=== PATIENT | male | born 1960 | race Caucasian/White ===

== ENCOUNTER → 2018-07-20 07:01 | Outpatient (CLI) | payer OTHER, SELFPAY ==
[2018-07-20 10:56] LABS: AST(SGOT) 21 U/L (15-37); Alanine Aminotransfer ALT/SGPT 39 U/L (16-61); Albumin, Serum 3.7 g/dL (3.2-5.0); Alkaline Phosphatase 58 U/L (45-117); Anion Gap 6 (5-15); BUN 18 mg/dL (7-18); BUN/Creat Ratio 19.5 RATIO (10-20); Calcium,Total 8.5 mg/dL (8.5-10.1); Chloride 106 mmol/L (98-107); Cholesterol 122 mg/dL (200); Creatinine, Serum 0.92 mg/dL (0.70-1.30); EST Glomerular Filtration Rate 90 mL/min (>60); Est Glom Filt Rate - Afr Amer 109 mL/min (>60); Globulin 3.6 g/dL (2.2-4.2); Glucose 81 mg/dL (74-106); High Density Lipoprotein 34 mg/dL; Protein, Total 7.3 g/dL (6.4-8.2); Sodium Level 143 mmol/L (136-145); Triglycerides 101 mg/dL; Very Low Density Lipoprotein 20 mg/dL (5-40)
== END ==
PROVIDERS: Family Provider Family Medicine; PCP Family Medicine; Referring Provider Family Medicine; Visit Provider Family Medicine
DX: E78.00 Pure hypercholesterolemia, unspecified (principal); N40.0 Benign prostatic hyperplasia without lower urinary tract symptoms
CPT/HCPCS: 36415; 80053; 80061; 84153; G0103

== ENCOUNTER → 2018-08-15 09:46 | Outpatient (CLI) | payer OTHER, SELFPAY ==
[2018-08-15 13:11] LABS: Thyroid Stim Hormone (TSH) 1.06 uIU/mL (0.358-3.74)
== END ==
PROVIDERS: Family Provider Family Medicine; PCP Family Medicine; Visit Provider Family Medicine
DX: R53.83 Other fatigue (principal)
CPT/HCPCS: 36415; 84443

== ENCOUNTER → 2021-04-22 15:57 | Outpatient (CLI) | payer OTHER, SELFPAY ==
--- NOTE | 2021-04-22 16:00 | RAD_ITS ---
STUDY: X-RAY CHEST REASON FOR EXAM: Male, 60 years old. Tightness in chest TECHNIQUE: PA and lateral COMPARISON: None. FINDINGS: Less than optimal inspiratory effort is seen however the lungs are clear.. There is no demonstrated pleural abnormality. Normal size heart. Normal mediastinum and radha. Normal visualized pulmonary arteries. Normal visualized aortic arch and descending thoracic aorta. Normal visualized thoracic spine. Normal visualized ribs, clavicles, and shoulders. There is no demonstrated abnormality of the visualized soft tissue structures of the upper abdomen. RAD/Chest PA and Lateral IMPRESSION: Diminished inspiratory effort. No acute disease Electronically Signed: Gregory Burdick MD at 16:13 EDT , Service support ,
== END ==
PROVIDERS: PCP Family Medicine; Referring Provider Family Medicine; Visit Provider Family Medicine
DX: M79.18 Myalgia, other site (principal)
CPT/HCPCS: 71046

== ENCOUNTER → 2021-08-28 07:59 | Outpatient (CLI) | payer OTHER, SELFPAY ==
[2021-08-28 10:01] LABS: Absolute Lymphocyte Count 1.72 X10^3/uL (0.83-4.51); Absolute Neutrophil Count 3.2 X10^3/uL (2.0-7.7); Basophil# 0.03 X10^3/uL; Basophil% 0.5 % (0-1); Eosinophil# 0.22 X10^3/uL; Hematocrit 46.1 % (40-54); Hemoglobin 15.9 g/dL (13.0-16.5); Lymphocyte # 1.72 X10^3/ul (0.83-4.51); Lymphocyte % 30.9 % (19-41); Mean Corp Hgb Conc 34.5 g/dL (32-36); Mean Corpuscular Hgb 31.4 pg (27.0-32.0); Mean Corpuscular Volume 91.1 fL (80-94); Mean Platelet Vol. 9.8 fl (6.2-12.0); Monocyte# 0.35 X10^3/uL; Monocyte% 6.3 % (0-10); NRBC Flagged by Analyzer 0 % (0-5); Neutrophil # 3.22 X10^3/uL (2.7-7.7); Neutrophil % 57.9 % (47-70); Platelet Count 233 K/mm3 (150-450); RBC Distribution Width CV 12.5 % (11.6-14.6); RBC Distribution Width SD 41.1 fl (35.1-43.9); Red Blood Count 5.06 M/mm3 (4.6-6.2); White Blood Count 5.6 K/mm3 (4.4-11.0)
[2021-08-28 10:24] LABS: ALB/GLOB Ratio 1.1 RATIO (0.9-2.4); AST(SGOT) 22 U/L (15-37); Alanine Aminotransfer ALT/SGPT 54 U/L (16-61); Albumin, Serum 3.7 g/dL (3.2-5.0); Alkaline Phosphatase 52 U/L (45-117); Anion Gap 2 (5-15); BUN 22 mg/dL (7-18); BUN/Creat Ratio 24.9 RATIO (10-20); Calcium,Total 9.2 mg/dL (8.5-10.1); Chloride 110 mmol/L (98-107); Cholesterol 153 mg/dL (200); Creatinine, Serum 0.88 mg/dL (0.70-1.30); EST Glomerular Filtration Rate 94 mL/min (>60); Est Glom Filt Rate - Afr Amer 113 mL/min (>60); Globulin 3.5 g/dL (2.2-4.2); Glucose 98 mg/dL (74-106); High Density Lipoprotein 37 mg/dL; Potassium 4.2 mmol/L (3.5-5.1); Protein, Total 7.2 g/dL (6.4-8.2); Sodium Level 143 mmol/L (136-145); Triglycerides 90 mg/dL; Very Low Density Lipoprotein 18 mg/dL (5-40)
== END ==
PROVIDERS: PCP Family Medicine; Referring Provider Family Medicine; Visit Provider Family Medicine
DX: Z00.00 Encounter for general adult medical examination without abnormal findings (principal); E78.00 Pure hypercholesterolemia, unspecified; N40.0 Benign prostatic hyperplasia without lower urinary tract symptoms; R97.20 Elevated prostate specific antigen [PSA]
CPT/HCPCS: 36415; 80053; 80061; 85025

== ENCOUNTER 2021-10-26 17:49 | Outpatient (CLI) | payer BC, SELFPAY | END 2021-10-26 23:59 | disposition home or self-care (01) | PROVIDERS: PCP Family Medicine; Visit Provider Family Medicine | DX: R31.9 Hematuria, unspecified (principal) | CPT/HCPCS: 87086 ==

== ENCOUNTER 2021-10-28 15:06 | Outpatient (CLI) | payer BC, SELFPAY ==
--- NOTE | 2021-10-28 15:10 | US_ITS ---
STUDY: RENAL ULTRASOUND - COMPLETE REASON FOR EXAM: Male, 61 years old. HEMATURIA TECHNIQUE: Ultrasound evaluation of the kidneys was performed with real-time and static yanez-scale imaging. COMPARISON: None. FINDINGS: RIGHT KIDNEY: Normal location of the right kidney, which is normal in size. The right kidney measures 11.1 cm. There is a normal cortex of the right kidney. The renal cortex measures 1.3 cm. There is no right renal mass or cyst. There are no right renal calculi. There is no right hydronephrosis. DISTAL RIGHT URETER: There is non-visualization of the distal right ureter. There is no demonstrated right ureterovesical junction calculus. There is a visualized right ureteral jet. LEFT KIDNEY: Normal location of the left kidney, which is normal in size. The left kidney measures 10.5 cm. There is a normal cortex of the left kidney. The renal cortex measures 1.4 cm. There is no left renal mass or cyst. There are no left renal calculi. There is no left hydronephrosis. DISTAL LEFT URETER: There is non-visualization of the distal left ureter. There is no demonstrated left ureterovesical junction calculus. There is a visualized left ureteral jet. AORTA: There is no elongation or tortuosity of the abdominal aorta. I.V.C.: The IVC is obscured. BLADDER: The distended urinary bladder has a volume of 185 ml. There is a normal wall thickness of the distended urinary bladder. There is no demonstrated mass within the urinary bladder. There are no demonstrated bladder calculi. Prominent prostate gland. US/Kidney and Bladder IMPRESSION: No acute findings on this ultrasound of the kidneys and urinary bladder. The prostate gland is enlarged. Electronically Signed: Toño Scott MD at 16:13 EST ,
== END 2021-10-28 23:59 | disposition home or self-care (01) ==
PROVIDERS: PCP Family Medicine; Referring Provider Family Medicine; Visit Provider Family Medicine
DX: R31.9 Hematuria, unspecified (principal)
CPT/HCPCS: 76770

== ENCOUNTER 2021-11-12 11:00 | Outpatient (CLI) | payer BC, SELFPAY | END 2021-11-12 23:59 | disposition home or self-care (01) | LOC: SL 11:40 | PROVIDERS: PCP Family Medicine; Visit Provider Nurse Practitioner Acute Care | DX: G47.10 Hypersomnia, unspecified (principal) | CPT/HCPCS: 95806 ==

== ENCOUNTER 2022-07-28 06:23 | Inpatient (IN) | payer BC, SELFPAY ==
[2022-07-28] VITALS (17 sets, daily range): BP systolic 103–124; BP diastolic 61–86; PULSE 59–82; RESP 12–18; TEMP 36.4–37.1; O2SAT 95–99; BMI 28.0; BMI 27.2
--- NOTE | 2022-07-28 06:24 | CT_ITS ---
STUDY: CT HEAD STROKE PROTOCOL W/O CONTRAST INJECTION REASON FOR EXAM: Male, 61 years old. Neuro deficit, acute, stroke suspected RADIATION DOSAGE (If Supplied By Facility): CTDIvol = ( 45 ) mGy, DLP = ( 832.7 ) mGycm TECHNIQUE: Transaxial CT imaging of the brain was performed without administration of intravenous contrast material. Multiplanar reformations are submitted for interpretation. Individualized dose optimization techniques were used for this CT. COMPARISON: No relevant priors. FINDINGS: Normal soft tissue structures. Normal calvarium. Normal size ventricles and extra-axial spaces for the patient''s age. Normal white matter tracts of the cerebral hemispheres. Normal basal ganglia and thalami. Normal brainstem. Normal cerebellum. There is no intracranial hemorrhage. There is a focal hyperdensity in expected location of LEFT M2 and M3 branch of the left frontal lobe consistent with acute infarct. This is identified on axial image #15 and 16 and on coronal image #34. There is also suggestion for some patchy decreased attenuation within the left frontal lobe cortex. Normal visualized paranasal sinuses. CT/STROKE Brain/Head without Cont IMPRESSION: 1. The findings suggest thrombosis of the LEFT M2 and M3 branches within the left sylvian fissure with findings suggestive of a left middle cerebral artery territory infarct. 2. No CT evidence of acute intracranial hemorrhage. N.B. : The above Results were Read Back by Edie Barnard MD to Christian Dobbs MD, and understanding confirmed on 07/28/2022 06:36:40 (ET). Electronically Signed: Edie Barnard MD at 6:40 EST ,
--- NOTE | 2022-07-28 06:25 | CT_ITS ---
STUDY: CTA HEAD AND NECK WITH CONTRAST REASON FOR EXAM: Male, 61 years old patient with acute neurologic deficit. RADIATION DOSAGE (If Supplied By Facility): CTDIvol = ( 24.17 ) mGy, DLP = ( 787.31 ) mGycm TECHNIQUE: CT angiography was performed with a multi-detector CT scanner. Data acquisition was obtained from the skull base through the vertex following intravenous administration of 100 mL of Isovue-370. MIP images were reconstructed from the axial data set. Post-processing of the angiographic images was performed, with multiplanar reformation and 3D reconstruction. Individualized dose optimization techniques were used for this CT. COMPARISON: No relevant priors. FINDINGS: Normal bilateral petrous carotid arteries. Normal right cavernous carotid artery with a normal supraclinoid bifurcation. There is elongation and tortuosity of the left cavernous carotid artery without a demonstrated hemodynamically significant stenosis. Normal right A1 segments of the anterior cerebral artery. Normal left A1 segments of the anterior cerebral artery. Normal intact anterior communicating artery (ACOM). Normal bilateral A2 segments of the anterior cerebral arteries. Normal right M1 and M2 segments of the middle cerebral arteries, with a normal M1 bifurcation. Normal left M1 segments of the middle cerebral arteries, with a normal M1 bifurcation. There is thrombosis of one of the left-sided M2 branches best seen on series #2 images #[id number]. Normal right posterior communicating artery (PCOM). Normal left posterior communicating artery (PCOM). Normal bilateral vertebral arteries. Normal basilar artery with a normal basilar bifurcation. The visualized bilateral superior cerebellar (SCA) arteries are normal. Normal bilateral P1, P2 and visualized P3 segments of the posterior cerebral arteries. There is no demonstrated aneurysm of the [place]. There is no demonstrated abnormality of the visualized brain. AORTIC ARCH: Normal visualized aortic arch. Normal origins of the brachiocephalic, left common carotid, and left subclavian arteries. RIGHT CAROTID ARTERIES: Normal right common carotid artery (CCA). Normal right common carotid bulb. Normal origin of the right internal carotid (ICA) artery without a hemodynamically significant stenosis. Normal visualized cervical portion of the right internal carotid artery. Normal origin of the right external carotid artery (ECA). LEFT CAROTID ARTERIES: Normal left common carotid artery (CCA). Normal left common carotid bulb. Normal origin of the left internal carotid (ICA) artery without a hemodynamically significant stenosis. Normal visualized cervical portion of the left internal carotid artery. Normal origin of the left external carotid artery (ECA). VERTEBRAL ARTERIES: Normal bilateral vertebral arteries. NECK ANATOMY: There is scattered mucous retention cysts and mucosal thickening within the maxillary and ethmoid sinuses. There is patchy groundglass attenuation in the upper lobes. The thyroid has a normal appearance. Visualized parotid and subglandular glands have a normal CT appearance. Nasopharynx, oropharynx, hypopharynx and larynx have a grossly normal appearance. The multilevel degenerative changes of the cervical spine with disc space narrowing at C5-6 and C6-7. CT/STROKE CTA Head AND Neck W/Con IMPRESSION: 1. Findings suggest thrombosis of one of the left sided M2 branches. 2. General patency of the arteries of [place], otherwise. 3. No CTA evidence of hemodynamically significant stenosis, thrombosis or dissection of the arteries in neck. N.B. : The above Results were Read Back by Edie Barnard MD to Christian Dobbs MD, and understanding confirmed on 07/28/2022 07:12:36 (ET). Electronically Signed: Edie Barnard MD at 7:12 EST Reading Location ID and State: [facility] / [place] , Service support ,
[2022-07-28 06:33] LABS: Basophil# 0.03 X10^3/uL; Basophil% 0.5 % (0-1); Eosinophil# 0.16 X10^3/uL; Eosinophils% 2.6 % (0-5); Hematocrit 43.6 % (40-54); Hemoglobin 15.3 g/dL (13.0-16.5); Lymphocyte % 25.9 % (19-41); Mean Corp Hgb Conc 35.1 g/dL (32-36); Mean Corpuscular Hgb 31.4 pg (27.0-32.0); Mean Corpuscular Volume 89.3 fL (80-94); Mean Platelet Vol. 9.4 fl (6.2-12.0); Monocyte# 0.37 X10^3/uL; NRBC Flagged by Analyzer 0 % (0-5); Neutrophil % 64.7 % (47-70); Platelet Count 191 K/mm3 (150-450); RBC Distribution Width CV 12.1 % (11.6-14.6); RBC Distribution Width SD 39.3 fl (35.1-43.9); Red Blood Count 4.88 M/mm3 (4.6-6.2); White Blood Count 6.2 K/mm3 (4.4-11.0)
[2022-07-28 06:41] LABS: International Normalized Ratio 1.1; Prothrombin Time (Protime)PT. 13.8 SECONDS (11.7-14.9)
[2022-07-28 06:42] LABS: Partial Thromboplast Time 25.6 Seconds (24.1-36.2)
--- NOTE | 2022-07-28 06:47 | NURSING ---
NO OLD EKGS
[2022-07-28 06:54] LABS: Anion Gap 5 (5-15); BUN 17 mg/dL (7-18); BUN/Creat Ratio 17.5 RATIO (10-20); Calcium,Total 9.1 mg/dL (8.5-10.1); Chloride 107 mmol/L (98-107); Creatinine, Serum 0.97 mg/dL (0.70-1.30); EST Glomerular Filtration Rate 84 mL/min (>60); Est Glom Filt Rate - Afr Amer 102 mL/min (>60); Estimated Creatinine Clearance 79.33 ml/min; Glucose 115 mg/dL (74-106); Potassium 3.8 mmol/L (3.5-5.1); Sodium Level 141 mmol/L (136-145); Troponin-I HS < 3 pg/mL (3.0-78.0)
--- NOTE | 2022-07-28 07:15 | RAD_ITS ---
STUDY: X-RAY CHEST REASON FOR EXAM: Male, 61 years old patient with neurologic deficit, acute, stroke suspected. TECHNIQUE: Single AP portable view of the chest. COMPARISON: 04/22/2021. FINDINGS: Cardiac monitoring leads are present. The lungs are underexpanded. There is mild elevation of the right hemidiaphragm. There is no demonstrated pleural abnormality. There is mild cardiac enlargement. Normal mediastinum and radha. There is prominence of the pulmonary hilar arteries with peripheral pulmonary vascular congestion. Normal visualized aortic arch and descending thoracic aorta. Normal visualized thoracic spine. Normal visualized ribs, clavicles, and shoulders. There is no demonstrated abnormality of the visualized soft tissue structures of the upper abdomen. RAD/Chest 1 View IMPRESSION: Mild cardiomegaly and pulmonary vascular congestion. Electronically Signed: Edie Barnard MD at 7:53 EST ,
--- NOTE | 2022-07-28 07:52 | NURSING ---
DR HOLDER FOR DR ANDREWS
--- NOTE | 2022-07-28 07:59 | EX.ED.DYSGE1 ---
HPI History of Present Illness Chief Complaint: Stroke Alert Narrative Narrative: Patient is a 61-year-old male with past medical history of hyperlipidemia. He was last seen normal at 10 PM last night. Reportedly he awoke this morning with difficulty speaking and standing and weakness and EMS was called. EMS states when they arrived he was awake but could not speak or follow commands and could not stand. Secondary to this activated a stroke alert. They report his blood sugar was normal. Patient cannot offer any further history based on his clinical condition. [facility] Medical History Hyperlipidemia Home Medications atorvastatin 40 mg tablet 40 mg PO DAILY 10/13/21 [History Last Taken Unknown] fluticasone propionate 50 mcg/actuation nasal spray,suspension 1 spray intranasal DAILY 10/13/21 [History Last Taken Unknown] oxymetazoline 0.05 % nasal spray (Afrin (oxymetazoline)) 1 spray intranasal ONCE 10/13/21 [History Last Taken Unknown] Allergy/AdvReac Type Severity Reaction Status Date / Time No Known Allergies Allergy Verified 11/26/21 09:09 Family History Father Cancer bladder cancer Surgical History History of prostate surgery Hx of basal cell carcinoma excision Previous back surgery Social History household members: spouse housing: house pets and animals: Yes (guinea pigs) Smoking Status: Never smoker alcohol intake: current alcohol intake frequency: holidays/special occasions only Alcohol type: wine substance use type: does not use ROS ROS ED Review of Systems ROS Unobtainable: due to mental condition EXAM Physical Exam Const Vital Signs: 07/28/22 06:25 07/28/22 06:37 07/28/22 06:37 Temperature 97.5 F L Temperature Source Oral Pulse Rate 60 66 Respiratory Rate 18 15 Blood Pressure 124/80 H 113/68 Blood Pressure Mean 94 83 Pulse Ox 97 95 Oxygen Delivery Method Room Air Room Air Room Air 07/28/22 06:37 07/28/22 06:58 07/28/22 07:33 Temperature 98.2 F Temperature Source Temporal Pulse Rate 66 69 68 Respiratory Rate 14 14 15 Blood Pressure 113/68 112/71 108/86 H Blood Pressure Mean 83 84 93 Pulse Ox 95 99 97 Oxygen Delivery Method Room Air Room Air Room Air 07/28/22 07:33 Temperature Temperature Source Pulse Rate 70 Respiratory Rate 15 Blood Pressure 108/86 H Blood Pressure Mean 93 Pulse Ox 97 Oxygen Delivery Method Room Air Positive well nourished and well developed General Appearance ED: well developed HEENT Reports moist mucous membranes Eyes PERRL and EOMs intact bilaterally Neck supple Resp normal respiratory effort and clear to auscultation bilaterally Cardio regular rate and regular rhythm Rate: other Other Details: Radial pulses are +2-4 bilaterally are equal and symmetric GI non-distended GI Narrative: No pulsatile mass Auscultation: normoactive bowel sounds Palpation: soft Extremity Extremity Narrative: No bony deformity or joint effusion noted no asymmetric edema present. Neuro Neuro Narrative: Patient is awake but cannot answer level of consciousness questions. He also has difficulty performing consciousness commands. He has right sided facial droop as well as right arm drift and right leg drift. No truncal ataxia noted. Patient has aphasia and mild dysarthria. No obvious clark of vision loss. Patient has an NIH stroke scale score of 12 based on the above observations Sensorium / Orientation: alert Psych Psych Narrative: Patient has a flat affect Skin no rashes or lesions noted MDM MDM MDM Narrative Medical decision making narrative: Patient presented to the ER with obvious focal deficits consistent with acute stroke. However his last known well was 10 PM on the night of July 27 and therefore he is outside the tPA window. Still based on the severity of the symptoms a stroke alert was activated as he could qualify for thrombectomy if there is a large vessel occlusion present on CTA. CT scan did show a small thrombus in the M2 branch on the left but this is a distal lesion and the remainder of the vessels are largely patent. Therefore after discussing the case with neurology they do not feel he would warrant thrombectomy and recommend he receive a loading dose of Plavix and continue aspirin daily but do not feel there is need for transfer. Therefore these meds were ordered and patient will be admitted to the hospital for further observation and treatment Lab Data Attestation: I reviewed the patient's lab results. Labs: Laboratory Results - last 24 hr 07/28/22 07/28/22 07/28/22 06:16 06:16 06:16 WBC 6.2 RBC 4.88 Hgb 15.3 Hct 43.6 MCV 89.3 MCH 31.4 MCHC 35.1 RDW Std Deviation 39.3 RDW Coeff of Whit 12.1 Plt Count 191 MPV 9.4 Immature Gran % (Auto) 0.300 Neut % (Auto) 64.7 Lymph % (Auto) 25.9 [place] % (Auto) 6.0 Eos % (Auto) 2.6 Baso % (Auto) 0.5 Absolute Neuts (auto) 4.0 Absolute Lymphs (auto) 1.60 Nucleated RBC % 0 PT 13.8 INR 1.1 APTT 25.6 Sodium 141 Potassium 3.8 Chloride 107 Carbon Dioxide 29.0 Anion Gap 5 BUN 17 Creatinine 0.97 Estim Creat Clear Calc 79.33 Est GFR (MDRD) Af Amer 102 Est GFR (MDRD) Non-Af 84 BUN/Creatinine Ratio 17.5 Glucose 115 H Calcium 9.1 Troponin I High Sens < 3 L Radiography Diagnostic Testing: Clinical Impression(s) from Imaging Studies Brain CT 07/28/22 06:24 IMPRESSION: 1. The findings suggest thrombosis of the LEFT M2 and M3 branches within the left sylvian fissure with findings suggestive of a left middle cerebral artery territory infarct. 2. No CT evidence of acute intracranial hemorrhage. N.B. : The above Results were Read Back by Edie Barnard MD to Christian Dobbs MD, and understanding confirmed on 07/28/2022 06:36:40 (ET). Electronically Signed: Edie Barnard MD at 6:40 EST Reading Location ID and State: [facility] / [place] , Service support , ADDENDUM: 07/28/22 0647 IMPRESSION: 1. The findings suggest thrombosis of the LEFT M2 and M3 branches within the left sylvian fissure with findings suggestive of a left middle cerebral artery territory infarct. 2. No CT evidence of acute intracranial hemorrhage. N.B. : The above Results were Read Back by Edie Barnard MD to hCristian Dobbs MD, and understanding confirmed on 07/28/2022 06:36:40 (ET). Electronically Signed: Edie Barnard MD at 6:40 EST , Head/Neck CTA 07/28/22 06:25 IMPRESSION: 1. Findings suggest thrombosis of one of the left sided M2 branches. 2. General patency of the arteries of [place], otherwise. 3. No CTA evidence of hemodynamically significant stenosis, thrombosis or dissection of the arteries in neck. N.B. : The above Results were Read Back by Edie Barnard MD to Christian Dobbs MD, and understanding confirmed on 07/28/2022 07:12:36 (ET). Electronically Signed: Edie Barnard MD at 7:12 EST , Chest X-Ray 07/28/22 07:15 IMPRESSION: Mild cardiomegaly and pulmonary vascular congestion. Electronically Signed: Edie Barnard MD at 7:53 EST , Chest x-ray as interpreted by the emergency medicine physician reveals no obvious infiltrate pneumothorax or pleural effusion Critical Care Time Critical Care Time: Yes Critical care time (excluding procedures): Discussing w/Patient &/or Family/Cut Off Saw Grader, Discussing w/Consultants, Performing Direct Patient Care at Bedside and - (Critical care time of 31 minutes) Discharge Plan Triage Chief Complaint: Stroke Alert ED Provider: Christian Dobbs Dx/Rx/DC Orders Clinical Impression: Acute cerebrovascular accident (CVA), Hyperlipidemia Prescriptions: No Action atorvastatin 40 mg tablet 40 mg PO DAILY fluticasone propionate 50 mcg/actuation spray,suspension 1 spray intranasal DAILY Rx Instructions: administer into each nostril oxymetazoline [Afrin (oxymetazoline)] 0.05 % spray,non-aerosol 1 spray intranasal ONCE Primary Care Provider: Babak Cosme Referrals: Babak Cosme MD [Primary Care Provider] - Disposition Disposition: Acute Care [facility]
--- NOTE | 2022-07-28 08:07 | NURSING ---
PCU HOLDER CVA
[2022-07-28] MEDS: Clopidogrel Bisulfate 300 MG Tablet 600 MG PO (08:24)
[2022-07-28] MEDS: Aspirin 325 MG Tablet PO (08:24)
--- NOTE | 2022-07-28 08:24 | ECHOD_ITS ---
Reason For Study: TIA/STROKE Procedure This was a 2D Doppler, Color Flow transthoracic echocardiogram. The exam was of adequate technical quality. Exam performed portable in patient room. Left Ventricle Normal LV size. Left ventricular systolic function is normal. The estimated ejection fraction is 60 %. No evidence for diastolic dysfunction. No regional wall motion abnormalities noted. Right Ventricle Normal RV size. Normal systolic function. Atria Normal left atrium. Normal right atrium. No doppler evidence for ASD. Bubble contrast study negative for right to left interatrial shunt. Mitral Valve There is no mitral annular calcification. Normal mitral valve. Trivial mitral valve insufficiency. Tricuspid Valve Normal tricuspid valve. Trivial tricuspid valve insufficiency. Unable to estimate RV systolic pressure due to insufficient tricuspid regurgitant envelope. Aortic Valve Trisinus/trileaflet aortic valve. Normal aortic valve. Pulmonic Valve The pulmonic valve is not well visualized. Trivial pulmonic valve insufficiency. Great Vessels Normal sized aortic root. Pericardium/Pleural Trivial pericardial effusion. There are no echocardiographic indications of cardiac tamponade. Medication Performed a rapid injection of agitated mix of 9 cc saline and 1cc air to assess for atrial septal defect. MMode/2D Measurements & Calculations LVIDd: 4.9 cm IVSd: 0.71 cm Ao root diam: 3.2 cm LVIDs: 3.4 cm LVPWd: 0.90 cm RVDd: 3.2 cm FS: 31.5 % LAV(MOD-bp): 35.9 ml LVAd ap4: 31.6 cm2 SV(MOD-sp4): 66.3 ml LAV(MOD-bp) Indexed: 18.2 ml/m2 LVLd ap4: 8.1 cm LAV(MOD-sp2): 35.5 ml EDV(MOD-sp4): 104.6 ml LAV(MOD-sp4): 34.5 ml EDV(sp4-el): 104.4 ml LVAs ap4: 17.1 cm2 LVLs ap4: 6.5 cm ESV(MOD-sp4): 38.3 ml ESV(sp4-el): 38.0 ml EF(MOD-sp4): 63.4 % EF(sp4-el): 63.6 % SV(sp4-el): 66.4 ml LA A4 area: 14.4 cm2 LA dimension(2D): 3.8 cm RA A4 area: 14.2 cm2 Time Measurements MV dec time: 0.21 sec Doppler Measurements & Calculations MV E max rush: 66.3 cm/sec Lat Peak E' Rush: 10.9 cm/sec Med Peak E' Rush: 9.5 cm/sec MV A max rush: 61.2 cm/sec E/E' lat: 6.1 E/E' med: 7.0 MV E/A: 1.1 Ao V2 max: 103.2 cm/sec LV V1 max: 90.2 cm/sec PA V2 max: 95.8 cm/sec Ao max P.3 mmHg LV V1 max P.3 mmHg TR max rush: 234.6 cm/sec TR max P.0 mmHg ECHO/Echo Complete Interpretation Summary Left ventricular systolic function is normal. The estimated ejection fraction is 60 %. Trivial mitral valve insufficiency. Trivial tricuspid valve insufficiency. Trivial pulmonic valve insufficiency. Trivial pericardial effusion. There are no echocardiographic indications of cardiac tamponade. Unable to estimate RV systolic pressure due to insufficient tricuspid regurgita nt envelope. No evidence for diastolic dysfunction. Bubble contrast study negative for right to left interatrial shunt. Ordering Physician: Tamiko Kohler Referring Physician: DENNISE CHAVEZ Performed By: Marilia Fan RDCS
--- NOTE | 2022-07-28 08:27 | HP.PCM.HOS_ITS ---
HPI - General General Date of Admission: 07/28/22 Date of Service: 07/28/22 Chief Complaint: CVA HPI Narrative TOMY ROTHMAN, is a 61 M with history of hyperlipidemia who presented to [facility] 07/28/2022 accompanied by his and son due to new onset limping and difficulty with communication. Stroke alert in the ED was initiated and he had CT/CTA which showed thrombosis in one of the left-sided M2 and M3 branches within the left sylvian fissure and findings suggestive of left MCA territory infarct with no evidence of hemorrhage. ED physician had contacted neurology and given that his last known normal was 10 PM last night he was not a candidate for tPA and after review they did not feel he was a candidate for any other intervention. Recommended Plavix 600x1 and 325 aspirin followed by 81 mg daily. Hospitalist service contacted for admission. Went to evaluate patient and and son still at bedside. Confirmed last known normal was at 10 PM last night. Initially his son said that this morning he may have had a normal when he woke up to work out but then reported he had not seen him walking and also that his responses were mumbles at that time as well. Last known normal still then reported to be 10 PM last night. Reportedly he was in routine health prior to this and had not been voicing any complaints other than being tired which is typical for him per his . He has difficulty communic ating and following commands and was therefore unable to answer any of my questions on exam. [facility] Medical History Hyperlipidemia Home Medications atorvastatin 40 mg tablet 40 mg PO DAILY 10/13/21 [History Last Taken Unknown] fluticasone propionate 50 mcg/actuation nasal spray,suspension 1 spray intranasal DAILY 10/13/21 [History Last Taken Unknown] oxymetazoline 0.05 % nasal spray (Afrin (oxymetazoline)) 1 spray intranasal ONCE 10/13/21 [History Last Taken Unknown] Allergy/AdvReac Type Severity Reaction Status Date / Time No Known Allergies Allergy Verified 11/26/21 09:09 Family History Father Cancer bladder cancer Surgical History History of prostate surgery Hx of basal cell carcinoma excision Previous back surgery Social History (Reviewed 11/26/21 @ 09:17 by Leyda Martínez [employer] S[employer]LE, TAPPER [employer] 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) household members: spouse housing: house pets and animals: Yes (guinea pigs) Smoking Status: Never smoker alcohol intake: current alcohol intake frequency: holidays/special occasions only Alcohol type: wine substance use type: does not use ROS ROS Narrative Unable to obtain, it is inconsistent yes and knows to the same questions and cannot follow commands Vital Signs Vital Signs Vital Signs: 07/28/22 06:25 07/28/22 06:37 07/28/22 06:37 Temperature 97.5 F L Temperature Source Oral Pulse Rate 60 66 Respiratory Rate 18 15 Blood Pressure 124/80 H 113/68 Blood Pressure Mean 94 83 Pulse Ox 97 95 Oxygen Delivery Method Room Air Room Air Room Air 07/28/22 06:37 07/28/22 06:58 07/28/22 07:33 Temperature 98.2 F Temperature Source Temporal Pulse Rate 66 69 68 Respiratory Rate 14 14 15 Blood Pressure 113/68 112/71 108/86 H Blood Pressure Mean 83 84 93 Pulse Ox 95 99 97 Oxygen Delivery Method Room Air Room Air Room Air 07/28/22 07:33 Temperature Temperature Source Pulse Rate 70 Respiratory Rate 15 Blood Pressure 108/86 H Blood Pressure Mean 93 Pulse Ox 97 Oxygen Delivery Method Room Air Weight Weight: 83.7 kg Body Mass Index (BMI) 28.0 Physical Exam Const Constitutional Narrative: Alert, unable to answer orientation questions, does not appear acutely distressed HEENT HEENT Narrative: Normocephalic and atraumatic Eyes Eyes Narrative: Pupils equal, had difficulty following commands for extraocular movements though no overt deficits appreciated Neck supple Resp normal respiratory effort and clear to auscultation bilaterally Cardio regular rate and regular rhythm GI soft to palpation and non-distended Extremity Extremity Narrative: Moving his extremities but was unable to follow commands or participate in neuro or strength exam Neuro Neuro Narrative: Alert, unable to answer orientation questions, unable to participate in neuro exam, unable to name things, only said yes or no and was inconsistent with answers to the same questions and did not appear to be able to accurately convey responses. Moving extremities but unable to participate in strength exam. Did not follow commands. Reflexes brisk and symmetric throughout, did not appreciate any clonus in lower extremities. Did not note any asymmetrical facial movements but would not follow commands to test cranial nerves Psych Psych Narrative: Attempts to be cooperative Results Lab / Micro Data Result Diagrams: 07/28/22 06:16 07/28/22 06:16 Labs: Laboratory Results - last 24 hr 07/28/22 06:16: WBC 6.2, RBC 4.88, Hgb 15.3, Hct 43.6, MCV 89.3, MCH 31.4, MCHC 35.1, RDW Std Deviation 39.3, RDW Coeff of Whit 12.1, Plt Count 191, MPV 9.4, Immature Gran % (Auto) 0.300, Neut % (Auto) 64.7, Lymph % (Auto) 25.9, [place] % (Auto) 6.0, Eos % (Auto) 2.6, Baso % (Auto) 0.5, Absolute Neuts (auto) 4.0, Absolute Lymphs (auto) 1.60, Nucleated RBC % 0 07/28/22 06:16: PT 13.8, INR 1.1, APTT 25.6 07/28/22 06:16: Sodium 141, Potassium 3.8, Chloride 107, Carbon Dioxide 29.0, Anion Gap 5, BUN 17, Creatinine 0.97, Estim Creat Clear Calc 79.33, Est GFR (MDRD) Af Amer 102, Est GFR (MDRD) Non-Af 84, BUN/Creatinine Ratio 17.5, Glucose 115 H, Calcium 9.1, Troponin I High Sens < 3 L Rad[address] Impression Brain CT 07/28/22 06:24 IMPRESSION: 1. The findings suggest thrombosis of the LEFT M2 and M3 branches within the left sylvian fissure with findings suggestive of a left middle cerebral artery territory infarct. 2. No CT evidence of acute intracranial hemorrhage. N.B. : The above Results were Read Back by Edie Barnard MD to Christian Dobbs MD, and understanding confirmed on 07/28/2022 06:36:40 (ET). Electronically Signed: Edie Barnard MD at 6:40 EST Reading Location ID and State: [facility] / [place] , Service support , ADDENDUM: 07/28/2247 IMPRESSION: 1. The findings suggest thrombosis of the LEFT M2 and M3 branches within the left sylvian fissure with findings suggestive of a left middle cerebral artery territory infarct. 2. No CT evidence of acute intracranial hemorrhage. N.B. : The above Results were Read Back by Edie Barnard MD to Christian Dobbs MD, and understanding confirmed on 07/28/2022 06:36:40 (ET). Electronically Signed: Edie Barnard MD at 6:40 EST , Head/Neck CTA 07/28/22 06:25 IMPRESSION: 1. Findings suggest thrombosis of one of the left sided M2 branches. 2. General patency of the arteries of [place], otherwise. 3. No CTA evidence of hemodynamically significant stenosis, thrombosis or dissection of the arteries in neck. N.B. : The above Results were Read Back by Edie Barnard MD to Christian Dobbs MD, and understanding confirmed on 07/28/2022 07:12:36 (ET). Electronically Signed: Edie Barnard MD at 7:12 EST , Chest X-Ray 07/28/22 07:15 IMPRESSION: Mild cardiomegaly and pulmonary vascular congestion. Electronically Signed: Edie Barnard MD at 7:53 EST , Assessment & Plan Assessment/Plan (1) Acute cerebrovascular accident (CVA): PLAN: Plan #Acute ischemic CVA CT/CTA in ED suggestive of thrombosis in one of the left-sided M2 and M3 branches within the left sylvian fissure with findings suggestive of left MCA territory infarct with no evidence of hemorrhage Spoke with ED physician who had discussed with neuro, they recommended 600 mg of Plavix and 325 of aspirin followed by aspirin 81 mg daily and no further Plavix at this time Troponin within normal limits and EKG was sinus rhythm Will order echo, MRI, lipid panel, A1c PT/OT/speech Admit to telemetry Neurochecks Permissive hypertension tPA not given due to last known normal at 10 PM last night, ED physician spoke with neuro who did not think he was a candidate for any additional intervention and recommended medical admission and intervention #Hyperlipidemia Checking lipid panel Continuing atorvastatin #DVT ppx: SCDs Tamiko Kohler MD Charges/Coding Visit Charges Inpatient E&M: 08454 Init Hosp L2
--- NOTE | 2022-07-28 08:59 | MRI_ITS ---
We are attempting to reach an attending provider to discuss findings. An addendum with communication details will be sent when the communication is complete. INDICATION: CVA, WEAKNESS, SPEECH CHANGES EXAMINATION: MRI - MR Brain WO/W Contrast TECHNIQUE: Multiplanar and multisequence MR images of the brain were obtained without and with gadolinium. IV Contrast Dosage and Agent: 15 cc Clariscan COMPARISON: CT and CTA brain same date FINDINGS: BRAIN PARENCHYMA: No MRI evidence of hemorrhage. Acute ischemia in the left MCA distribution. No intracranial mass or mass effect. No abnormal postcontrast enhancement. Normal sella turcica, pituitary gland, infundibular stalk, optic chiasm and hypothalamus. Posterior fossa structures are unremarkable. INTERNAL AUDITORY CANALS: The internal auditory canals are well visualized and patent. No mass identified. CSF SPACES: Appropriate for age. No hydrocephalus. Basal cisterns are patent. VASCULAR SYSTEM: Normal flow voids in the major intracranial circulation. CALVARIUM, SKULL BASE, PARANASAL SINUSES AND MASTOID AIR CELLS: Ethmoid sinus mucoperiosteal thickening. ORBITS: Both globes, extraocular muscles, optic nerves and retrobulbar fat appear unremarkable. MRI/Brain W/WO Contrast IMPRESSION: Acute ischemia in the left MCA distribution. Electronically Signed: Norman Reese MD at 16:38 EST ,
[2022-07-28] MEDS: 0.9% Normal Saline 1,000 ML 75 ML IV (12:42)
[2022-07-28 15:40] LABS: Bedside Glucose 93 mg/dL (74-106)
--- NOTE | 2022-07-28 17:01 | TELEMED_ITS ---
[facility] Tele[facility] has confirmed receipt of a request for visit. This document confirms receipt of the order initiating the consult. To find the results of the consultation, please view the patient's reports for the scanned Telemed Consult.
[2022-07-29] VITALS (12 sets, daily range): BP systolic 96–117; BP diastolic 60–72; PULSE 71–89; RESP 16–17; TEMP 36.4–36.7; O2SAT 93–96; BMI 27.2
[2022-07-29] MEDS: 0.9% Normal Saline 1,000 ML 75 ML IV ×2 (01:16→14:21)
[2022-07-29 05:24] LABS: Absolute Lymphocyte Count 1.82 X10^3/uL (0.83-4.51); Absolute Neutrophil Count 5.1 X10^3/uL (2.0-7.7); Basophil# 0.03 X10^3/uL; Basophil% 0.4 % (0-1); Eosinophil# 0.11 X10^3/uL; Eosinophils% 1.4 % (0-5); Hematocrit 41.4 % (40-54); Hemoglobin 14.7 g/dL (13.0-16.5); Lymphocyte # 1.82 X10^3/ul (0.83-4.51); Lymphocyte % 23.8 % (19-41); Mean Corp Hgb Conc 35.5 g/dL (32-36); Mean Corpuscular Hgb 31.8 pg (27.0-32.0); Mean Corpuscular Volume 89.6 fL (80-94); Mean Platelet Vol. 9.3 fl (6.2-12.0); Monocyte# 0.57 X10^3/uL; Monocyte% 7.4 % (0-10); NRBC Flagged by Analyzer 0 % (0-5); Neutrophil # 5.12 X10^3/uL (2.7-7.7); Neutrophil % 66.9 % (47-70); Platelet Count 174 K/mm3 (150-450); RBC Distribution Width CV 12.3 % (11.6-14.6); RBC Distribution Width SD 39.8 fl (35.1-43.9); Red Blood Count 4.62 M/mm3 (4.6-6.2); White Blood Count 7.7 K/mm3 (4.4-11.0)
[2022-07-29 06:01] LABS: ALB/GLOB Ratio 1.1 RATIO (0.9-2.4); AST(SGOT) 21 U/L (15-37); Alanine Aminotransfer ALT/SGPT 35 U/L (16-61); Albumin, Serum 3.2 g/dL (3.2-5.0); Alkaline Phosphatase 51 U/L (45-117); Anion Gap 7 (5-15); BUN 18 mg/dL (7-18); Calcium,Total 8.2 mg/dL (8.5-10.1); Chloride 108 mmol/L (98-107); Cholesterol 132 mg/dL (200); Creatinine, Serum 0.86 mg/dL (0.70-1.30); EST Glomerular Filtration Rate 97 mL/min (>60); Est Glom Filt Rate - Afr Amer 117 mL/min (>60); Estimated Creatinine Clearance 89.48 ml/min; Glucose 79 mg/dL (74-106); High Density Lipoprotein 34 mg/dL; Potassium 3.7 mmol/L (3.5-5.1); Protein, Total 6.2 g/dL (6.4-8.2); Sodium Level 141 mmol/L (136-145); Thyroid Stim Hormone (TSH) 0.32 uIU/mL (0.358-3.74); Triglycerides 84 mg/dL; Very Low Density Lipoprotein 17 mg/dL (5-40)
[2022-07-29 08:28] LABS: Hemoglobin A1c 5.3 % (3.8-5.6)
--- NOTE | 2022-07-29 08:56 | PN.HOSP_ITS ---
Subjective Subjective More conversive today and better able to answer questions though still with difficulty answering orientation questions. Was moving limbs with prompts however Objective Data Objective Data Vital Signs: Vital Signs Temp Pulse Resp BP Pulse Ox O2 Del Method 97.9 F 76 16 117/68 96 Room Air 07/29/22 08:49 07/29/22 08:49 07/29/22 08:49 07/29/22 08:49 07/29/22 08:49 07/29/22 08:49 Oxygen Delivery Method Room Air Weight: 81.2 kg Body Mass Index (BMI) 27.2 Intake & Output: Intake and Output for Last 24 Hours 07/27/22 07/28/22 07/29/22 23:59 23:59 23:59 Intake Total 942.5 / 942.5 Output Total 550 / 550 250 / 250 Balance -550 / -550 692.5 / 692.5 Lab / Micro Data Result Diagrams: 07/29/22 04:52 07/29/22 04:52 Labs: Laboratory Results - last 24 hr 07/28/22 06:37: POC Glucose 93 07/29/22 04:52: Sodium 141, Potassium 3.7, Chloride 108 H, Carbon Dioxide 26.0, Anion Gap 7, BUN 18, Creatinine 0.86, Estim Creat Clear Calc 89.48, Est GFR (MDRD) Af Amer 117, Est GFR (MDRD) Non-Af 97, BUN/Creatinine Ratio 21.0 H, Glucose 79, Calcium 8.2 L, Total Bilirubin 2.60 H, AST 21, ALT 35, Alkaline Phosphatase 51, Total Protein 6.2 L, Albumin 3.2, Globulin 3.0, Albumin/Globulin Ratio 1.1, Triglycerides 84, Cholesterol 132, LDL Cholesterol 81, VLDL Cholesterol 17, HDL Cholesterol 34 L, TSH 0.32 L 07/29/22 04:52: WBC 7.7, RBC 4.62, Hgb 14.7, Hct 41.4, MCV 89.6, MCH 31.8, MCHC 35.5, RDW Std Deviation 39.8, RDW Coeff of Whit 12.3, Plt Count 174, MPV 9.3, Immature Gran % (Auto) 0.100, Neut % (Auto) 66.9, Lymph % (Auto) 23.8, [place] % (Auto) 7.4, Eos % (Auto) 1.4, Baso % (Auto) 0.4, Absolute Neuts (auto) 5.1, Ab solute Lymphs (auto) 1.82, Nucleated RBC % 0 07/29/22 04:52: Hemoglobin A1c 5.3 Radiography Diagnostic Testing: Radiology Impression Echocardiogram 07/28/22 08:24 Interpretation Summary Left ventricular systolic function is normal. The estimated ejection fraction is 60 %. Trivial mitral valve insufficiency. Trivial tricuspid valve insufficiency. Trivial pulmonic valve insufficiency. Trivial pericardial effusion. There are no echocardiographic indications of cardiac tamponade. Unable to estimate RV systolic pressure due to insufficient tricuspid regurgitant envelope. No evidence for diastolic dysfunction. Bubble contrast study negative for right to left interatrial shunt. Ordering Physician: Tamiko Kohler Referring Physician: DENNISE CHAVEZ Performed By: Marilia Fan RDCS Brain MRI 07/28/22 08:59 IMPRESSION: Acute ischemia in the left MCA distribution. Electronically Signed: Norman Reese MD at 16:38 EST Reading Location ID and State: [facility] / [place] Tel , Service support , ADDENDUM: 07/28/22 1702 IMPRESSION: Acute ischemia in the left MCA distribution. N.B. : The above Results were Read Back by Norman Reese MD to Sindhu Goldberg RN, and understanding confirmed on 07/28/2022 16:55:36 (ET). Electronically Signed: Norman Reese MD at 16:38 EST , Physical Exam Const alert and no apparent distress Constitutional Narrative: When asked if he knew where he was in the date he said yes but was unable to communicate the answer. No acute distress HEENT head/scalp atraumatic Eyes PERRL Eyes Narrative: Pupils equal Neck supple Resp normal respiratory effort and clear to auscultation bilaterally Cardio regular rate and regular rhythm GI soft to palpation, non-tender and non-distended Extremity Extremity Narrative: Moved all extremities with prompts today, was slower with right upper extremity however. Did have difficulty executing hand grasp. Neuro Neuro Narrative: Moves all extremities, no facial droop noted, does seem to comprehend questions and has improved execution compared to yesterday however continues to have some difficulty verbalizing answers and had difficulty executing commands with right hand more so than other limbs Psych affect normal Assessment & Plan Assessment/Plan (1) Acute cerebrovascular accident (CVA): PLAN: Plan #Acute ischemic CVA CT/CTA in ED suggestive of thrombosis in one of the left-sided M2 and M3 br anches within the left sylvian fissure with findings suggestive of left MCA territory infarct with no evidence of hemorrhage Spoke with ED physician who had discussed with neuro, they recommended 600 mg of Plavix and 325 of aspirin followed by aspirin 81 mg daily and no further Plavix at this time Troponin within normal limits and EKG was sinus rhythm Will order echo, MRI, lipid panel, A1c PT/OT/speech Admit to telemetry Neurochecks Permissive hypertension tPA not given due to last known normal at 10 PM last night, ED physician spoke with neuro who did not think he was a candidate for any additional intervention and recommended medical admission and intervention 07/29: Does continue to have difficulty executing commands and answering questions but is certainly improved from yesterday. Echo unremarkable. MRI confirmed left MCA infarct. Neurology formally consulted and should evaluate t milton. PT/OT. Formal speech eval today. Continue aspirin and statin #Hyperlipidemia Checking lipid panel Continuing atorvastatin #DVT ppx: SCDs Tamiko Kohler MD Charges/Coding Visit Charges Inpatient E&M: 29375 Subs Hosp L2
--- NOTE | 2022-07-29 08:56 | ST.MBS ---
Modified Barium Swallow - Patient Information Study Date: 07/29/22 Study Time: 08:50 Direct Billable Minutes: 100 Total Minutes procedure & reportin Diagnosis: Acute CVA (I63.9) Referring Physician: Tamiko Kohler Reason for Referral: Objectively assess swallow function, risk for aspiration, and determine recommendations for least restrictive diet textures and compensatory strategies to improve safety of swallow. Medical History: Cehster Lincoln is a 61-year-old male with PMH of hyperlipidemia who presented to [facility] 07/28/2022 accompanied by his and son due to new onset limping and difficulty with communication. Stroke alert in the ED was initiated and he had CT/CTA which showed thrombosis in one of the left-sided M2 and M3 branches within the left sylvian fissure and findings suggestive of left MCA territory infarct with no evidence of hemorrhage. He was not a candidate for tPA. He was admitted for further work up and management of CVA. Brain MRI 07/28/2022 revealed acute ischemia in the L MCA distribution. Pt was referred for ST consult as part of CVA workup. BSE 07/28/2022 recommended NPO with plan for MBSS prior to diet advancement. He also participated in informal cognitive-linguistic assessment 07/28/2022. Goals added to POC for following 1-step commands, answering yes/no questions, and completing automatic speech tasks. Current Diet Ordered: NPO Dentition: Natural Teeth Mental Status: Impaired - s/p CVA Respiratory Status: Oxygenating on Room Air - Penetration-Aspiration Scale Penetration-Aspiration Scale: OBJECTIVE ASSESSMENT OF SWALLOW FUNCTION (QUANTITATIVE ? PER TRIAL): PENETRATION / ASPIRATION SCALE (RICHARDS): 1 = does not enter airway 2 = enters airway/above vocal folds/ejected 3 = enters airway/above vocal folds/not ejected 4 = enters airway/contacts vocal folds/ejected 5 = enters airway/contacts vocal folds/not ejected 6 = enters airway/below vocal folds/ejected 7 = enters airway/below vocal folds/not ejected despite effort 8 = enters airway/below vocal folds/no effort VIDEOFLOROSCOPIC SCALE SCORE (RICHARDS): Grade I = aspiration of material that has penetrated into the laryngeal vestibule, intact cough reflex Grade II = aspiration < 10 % of the bolus, intact cough reflex Grade III = aspiration of < 10 % of the bolus, reduced cough reflex or aspiration of > 10 % of the bolus, intact cough reflex Grade IV = aspiration of > 10 % of the bolus, reduced cough reflex - Penetration-Aspiration Scale Score Thin Liquid via teaspoon Result: 1= does not enter airway Thin Liquid via teaspoon Trial 2 Result: 1= does not enter airway Thin Liquid via large single sip from cup Result: 1= does not enter airway [place] Thick Liquid via small single sip from cup Result: 1= does not enter airway Honey Thick Liquid via small single sip from cup Result: 1= does not enter airway Pudding via teaspoon with esophageal screen Result: 1= does not enter airway 1/2 Cookie Result: 1= does not enter airway Thin Liquid via sequential sips from straw Result: 2= enter airway/above vocal folds/ejected Thin Liquid via large single sip from cup Trial 2 Result: 2= enter airway/above vocal folds/ejected Thin Liquid via large single sip from cup Trial 3 Result: 1= does not enter airway - WINDOW MACHINE OPERATOR cued pt for small sip - he continued to take a large sip - Oral Phase Labial Seal: Escape beyond interlabial space; no extension beyond crispin border Tongue Control During Bolus Hold: Posterior escape of greater than half of bolus Bolus Preparation/Mastication: Timely and efficient chewing and mashing Bolus Transport/Lingual Motion: Delayed initiation of tongue motion Oral Residue: Trace residue lining oral structures - Pharyngeal Phase Initiation of Pharyngeal Swallow: Bolus head in pyriforms Soft Palate Elevation: No bolus between soft palate and pharyngeal wall Laryngeal Elevation: Partial superior movement thyroid cart/partial apprx aryt-epig petiole Anterior Hyoid Excursion: Partial anterior movement Epiglottic Movement: Complete inversion Laryngeal Vestibule Closure at Height of Swallow: Incomplete; narrow column of air/contrast in laryngeal vestibule Pharyngeal Stripping Wave: Present - complete Pharyngoesophageal Segment Opening: Complete distension and complete duration; no obstruction of flow Tongue Base Retraction: Narrow column of contrast between tongue base & post. pharyngeal wall Pharyngeal Residue: Collection of residue within or on pharyngeal structures - Esophageal Phase Esophageal Clearance: Complete clearance - Diagnosis/Impression Diagnosis: Mild oropharyngeal phase dysphagia (R13.12) Impression: The oral phase is primarily marked by... -Decreased bolus control with >1/2 of the bolus spilling posteriorly to the pyriforms prior to swallow onset observed with thin liquids. -Delayed tongue motion for A-P transport. The pharyngeal phase is primarily marked by... -Delayed swallow onset most notable when consuming thin liquids. -Mildly decreased airway closure during the swallow due to mildly decreased anterior hyoid excursion and laryngeal elevation. -Mildly decreased tongue base retraction with resulting mild pharyngeal residues after the swallow, most notable with larger sips and honey thickened liquids. -Laryngeal penetration of large sips of thin liquids by cup and sequential sips of thin liquids via straw, which did reliably eject from the laryngeal vestibule after the swallow. He drank with increased rate when consuming sips by straw. He requires continued training to decrease sip size by cup. No aspiration observed during the study. - Recommendations Diet: Regular Textures, Thin Liquids Compensatory Strategies: Small Bites, Small Sips, No Straws, Slow Rate, Sitting upright Supervision: Distant Supervision Recommend Repeat Modified Barium Swallow: TBD Need for Skilled Speech Therapy Services: Yes Comment: Will recommend the patient for continued dysphagia therapy to address deficits in oropharyngeal swallow function. Will recommend the patient for oropharyngeal strengthening to improve lingual strength/coordination, laryngeal elevation, hyoid excursion, and tongue base retraction (lingual resistance and coordination exercises, ERIK Perez). The patient would benefit from thorough education regarding diet recommendations and recommended compensatory strategies. Education Completed: 1. Described result of evaluation., 2. Pt understands evaluation & agrees with goals and treatment plan., 4. Family/caregivers understand evaluation & agree w/ goals & tx plan., 7. Pt requires further education on strategies & risks. - Status Active ST Patient: Active - Contact Information [facility] Speech Therapy:: Anh Carroll M.A. [facility]-WINDOW MACHINE OPERATOR Speech-Language Pathologist [facility] [address] [place] [address] [email or web address] [phone] 07/29/22 09:05
[2022-07-29] MEDS: Aspirin 81 MG TAB.CHEW PO (10:36)
[2022-07-29 10:53] LABS: T4 Free Direct 1.11 ng/dL (0.76-1.46)
--- NOTE | 2022-07-29 15:24 | CASEMGMT ---
SW reviewed therapy notes and Inpatient Rehabilitation is being recommended for patient. SW met with patient and family. Introduced self and role at [facility]. SW confirmed that they want patient to go to [facility] Inpatient Rehab Unit. They declined a list of any other facilities as they want patient to stay in [place]. SW explained that patient will stay her at [facility] until his insurance gives us an answer. JERMAINE explained this could be a day or more. JERMAINE spoke with Ana and made referral. Plan: [facility] Inpatient Rehab Unit Shama GARDNER
--- NOTE | 2022-07-29 16:06 | ECHOTEE_ITS ---
Reason For Study: TIA/CVA Medication TISH probe 6VT-D (SN [id number]) passed with minimal difficulty. No complications were noted. Cetacaine Topical Suches given X3 orally. Versed 1 mg given slow IVP. Fentanyl 50 mcg given slow IVP. Performed a rapid injection of agitated mix of 9 cc saline and 1cc air to assess for atrial septal defect. Left Ventricle Normal LV size. Left ventricular systolic function is normal. The estimated ejection fraction is 55 %. No regional wall motion abnormalities noted. Right Ventricle Normal RV size. The right ventricular wall motion is normal. Atria No doppler evidence for ASD. Bubble contrast study negative for right to left interatrial shunt. Normal left atrium. There is no sponatenous contrast in the left atrium. No thrombus is detected in the left atrial appendage. Normal right atrium. There is no sponatenous contrast in the right atrium. No right atrial/appendage thrombus identified. Mitral Valve There is no mitral annular calcification. Normal mitral valve. Trivial mitral valve insufficiency. Tricuspid Valve Normal tricuspid valve. Trivial tricuspid valve insufficiency. Aortic Valve Trisinus/trileaflet aortic valve. Normal aortic valve. Pulmonic Valve Normal pulmonic valve. Trivial pulmonic valve insufficiency. Vessels Normal-appearing thoracic aorta. Pericardium No pericardial effusion. ECHO/Echo Transesophageal (TISH) Interpretation Summary Left ventricular systolic function is normal. The estimated ejection fraction is 55 %. There is no sponatenous contrast in the left atrium. No thrombus is detected in the left atrial appendage. Trivial mitral valve insufficiency. Trivial tricuspid valve insufficiency. Trivial pulmonic valve insufficiency. Bubble contrast study negative for right to left interatrial shunt. Normal-appearing thoracic aorta. Ordering Physician: Tamiko Kohler Referring Physician: DENNISE CHAVEZ Performed By: Marilia Fan RDCS
[2022-07-29] MEDS: 0.9% Saline Lock 10 ML Syringe IV (20:53)
[2022-07-29] MEDS: Atorvastatin Calcium 40 MG Tablet PO (20:53)
[2022-07-30] VITALS (17 sets, daily range): BP systolic 98–117; BP diastolic 57–68; PULSE 31–85; RESP 16–18; TEMP 36.3–36.7; O2SAT 91–99; BMI 27.2
[2022-07-30] MEDS: 0.9% Normal Saline 1,000 ML 75 ML IV ×2 (03:27→14:47)
[2022-07-30 05:32] LABS: Absolute Lymphocyte Count 2.01 X10^3/uL (0.83-4.51); Absolute Neutrophil Count 4.2 X10^3/uL (2.0-7.7); Basophil# 0.03 X10^3/uL; Basophil% 0.4 % (0-1); Eosinophil# 0.09 X10^3/uL; Eosinophils% 1.3 % (0-5); Hematocrit 40.2 % (40-54); Hemoglobin 14.3 g/dL (13.0-16.5); Lymphocyte # 2.01 X10^3/ul (0.83-4.51); Lymphocyte % 28.9 % (19-41); Mean Corp Hgb Conc 35.6 g/dL (32-36); Mean Corpuscular Hgb 31.8 pg (27.0-32.0); Mean Corpuscular Volume 89.3 fL (80-94); Mean Platelet Vol. 9.2 fl (6.2-12.0); Monocyte# 0.59 X10^3/uL; Monocyte% 8.5 % (0-10); NRBC Flagged by Analyzer 0 % (0-5); Neutrophil # 4.23 X10^3/uL (2.7-7.7); Neutrophil % 60.8 % (47-70); Platelet Count 170 K/mm3 (150-450); RBC Distribution Width CV 12.1 % (11.6-14.6); RBC Distribution Width SD 39.4 fl (35.1-43.9)
[2022-07-30 06:10] LABS: AST(SGOT) 20 U/L (15-37); Alanine Aminotransfer ALT/SGPT 27 U/L (16-61); Alkaline Phosphatase 47 U/L (45-117); Anion Gap 7 (5-15); BUN 18 mg/dL (7-18); BUN/Creat Ratio 23.2 RATIO (10-20); Calcium,Total 8.4 mg/dL (8.5-10.1); Chloride 111 mmol/L (98-107); Creatinine, Serum 0.78 mg/dL (0.70-1.30); EST Glomerular Filtration Rate 109 mL/min (>60); Est Glom Filt Rate - Afr Amer 131 mL/min (>60); Estimated Creatinine Clearance 98.65 ml/min; Glucose 96 mg/dL (74-106); Potassium 3.6 mmol/L (3.5-5.1); Sodium Level 143 mmol/L (136-145)
--- NOTE | 2022-07-30 09:48 | NURSING ---
NIH completed late due to patient being off floor for TISH. NIH completed when patient returned to the room.
--- NOTE | 2022-07-30 11:57 | CASEMGMT ---
Rapid response was called for patient. SW went to the room and provided emotional support to patient's , Marquita. SW was able to get Marquita to sit down and somewhat relax. Patient improved, Marquita and family went back into the room. Plan: [facility] 4th floor Rehab Unit pending insurance approval. Shama GARDNER
[2022-07-30 12:16] LABS: Bedside Glucose 111 mg/dL (74-106)
[2022-07-30 12:39] LABS: Anion Gap 6 (5-15); BUN 15 mg/dL (7-18); BUN/Creat Ratio 18.2 RATIO (10-20); Calcium,Total 8.3 mg/dL (8.5-10.1); Chloride 109 mmol/L (98-107); Creatinine, Serum 0.82 mg/dL (0.70-1.30); EST Glomerular Filtration Rate 102 mL/min (>60); Est Glom Filt Rate - Afr Amer 123 mL/min (>60); Estimated Creatinine Clearance 93.84 ml/min; Glucose 113 mg/dL (74-106); Magnesium 2.1 mg/dL (1.6-2.6); Potassium 3.7 mmol/L (3.5-5.1); Sodium Level 140 mmol/L (136-145); Troponin-I HS 4 pg/mL (3.0-78.0)
--- NOTE | 2022-07-30 12:50 | NURSING ---
Pt's heart monitor alerted bradycardia at 31bpm. dining room coordinator went to check on pt as this RN was with another patient. Rapid response called and pt assisted back to bed from chair.
--- NOTE | 2022-07-30 13:35 | PN.HOSP_ITS ---
Subjective Subjective Evaluated this morning and he was doing well. Did have rapid response this afternoon for an episode of bradycardia with diaphoresis. He has been normal sinus rhythm with a normal rate during his hospitalization but after TISH heart rate was borderline bradycardia/would temporarily dipped down but returned to baseline and he was not symptomatic. Had 1 episode of pause and was diaphoretic, never lost consciousness. Blood pressure was systolic 90s. Given fluids and supportive care and improved on his own. Discussed with cardiology on-call who had high suspicion for vasovagal episode with no need for further intervention. Patient improved significantly. Will monitor on telemetry Objective Data Objective Data Vital Signs: Vital Signs Temp Pulse Resp BP Pulse Ox O2 Del Method 97.8 F 31 L 17 103/62 93 Room Air 07/30/22 09:42 07/30/22 12:33 07/30/22 10:30 07/30/22 10:30 07/30/22 10:30 07/30/22 10:30 Oxygen Delivery Method Room Air Weight: 81.2 kg Body Mass Index (BMI) 27.2 Intake & Output: Intake and Output for Last 24 Hours 07/28/22 07/29/22 07/30/22 23:59 23:59 23:59 Intake Total 2143.75 / 2143.75 982.5 / 982.5 Output Total 550 / 550 1250 / 1250 400 / 400 Balance -550 / -550 893.75 / 893.75 582.5 / 582.5 Lab / Micro Data Result Diagrams: 07/30/22 05:07 07/30/22 12:07 Labs: Laboratory Results - last 24 hr 07/30/22 05:07: WBC 7.0, RBC 4.50 L, Hgb 14.3, Hct 40.2, MCV 89.3, MCH 31.8, MCHC 35.6, RDW Std Deviation 39.4, RDW Coeff of Whit 12.1, Plt Count 170, MPV 9.2, Immature Gran % (Auto) 0.100, Neut % (Auto) 60.8, Lymph % (Auto) 28.9, [place] % (Auto) 8.5, Eos % (Auto) 1.3, Baso % (Auto) 0.4, Absolute Neuts (auto) 4.2, Absolute Lymphs (auto) 2.01, Nucleated RBC % 0 07/30/22 05:07: Sodium 143, Potassium 3.6, Chloride 111 H, Carbon Dioxide 25.0, Anion Gap 7, BUN 18, Creatinine 0.78, Estim Creat Clear Calc 98.65, Est GFR (MDRD) Af Amer 131, Est GFR (MDRD) Non-Af 109, BUN/Creatinine Ratio 23.2 H, Glucose 96, Calcium 8.4 L, Total Bilirubin 1.80 H, AST 20, ALT 27, Alkaline Phosphatase 47, Total Protein 6.0 L, Albumin 3.0 L, Globulin 3.0, Albumin/Globulin Ratio 1.0 07/30/22 11:45: POC Glucose 111 H 07/30/22 12:07: Sodium 140, Potassium 3.7, Chloride 109 H, Carbon Dioxide 25.0, Anion Gap 6, BUN 15, Creatinine 0.82, Estim Creat Clear Calc 93.84, Est GFR (MDRD) Af Amer 123, Est GFR (MDRD) Non-Af 102, BUN/Creatinine Ratio 18.2, Glucose 113 H, Calcium 8.3 L, Magnesium 2.1, Troponin I High Sens 4 Micro: Microbiology 07/30/22 07:20 Nasal Secretion SARS-CoV-2 Antigen (Rapid) - Final Radiography Diagnostic Testing: Radiology Impression Transesophageal Echocardiogram 07/29/22 16:06 Interpretation Summary Left ventricular systolic function is normal. The estimated ejection fraction is 55 %. There is no sponatenous contrast in the left atrium. No thrombus is detected in the left atrial appendage. Trivial mitral valve insufficiency. Trivial tricuspid valve insufficiency. Trivial pulmonic valve insufficiency. Bubble contrast study negative for right to left interatrial shunt. Normal-appearing thoracic aorta. Ordering Physician: Tamiko Kohler Referring Physician: DENNISE CHAVEZ Performed By: Marilia Fan RDCS Physical Exam Const alert and no apparent distress Constitutional Narrative: When asked if he knew where he was in the date he said yes but was unable to communicate the answer. No acute distress HEENT head/scalp atraumatic Eyes PERRL Eyes Narrative: Pupils equal Neck supple Resp normal respiratory effort and clear to auscultation bilaterally Cardio regular rate and regular rhythm GI soft to palpation, non-tender and non-distended Extremity Extremity Narrative: Moved all extremities and was able to give thumbs up when asked Neuro Neuro Narrative: Moves all extremities, no facial droop noted, continues to seem able to comprehend questions but still has difficulty with verbal communication though more able to execute physical commands. Psych affect normal Assessment & Plan Assessment/Plan (1) Acute cerebrovascular accident (CVA): PLAN: Plan #Acute ischemic CVA CT/CTA in ED suggestive of thrombosis in one of the left-sided M2 and M3 branches within the left sylvian fissure with findings suggestive of left MCA territory infarct with no evidence of hemorrhage Spoke with ED physician who had discussed with neuro, they recommended 600 mg of Plavix and 325 of aspirin followed by aspirin 81 mg daily and no further Plavix at this time Troponin within normal limits and EKG was sinus rhythm Will order echo, MRI, lipid panel, A1c PT/OT/speech Admit to telemetry Neurochecks Permissive hypertension tPA not given due to last known normal at 10 PM last night, ED physician spoke with neuro who did not think he was a candidate for any additional intervention and recommended medical admission and intervention 07/29: Does continue to have difficulty executing commands and answering questions but is certainly improved from yesterday. Echo unremarkable. MRI confirmed left MCA infarct. Neurology formally consulted and should evaluate today. PT/OT. Formal speech eval today. Continue aspirin and statin 07/30: Spoke with neurology who evaluated, had TISH today that was unremarkable. Increased statin intensity. Continue aspirin. We will consider 30-day monitor on discharge. Continue to work with therapy, awaiting insurance decision for inpatient rehab #Bradycardia Brief pause and bradycardia with diaphoresis Resolved independently Most likely vasovagal EKG without heart block or other abnormalities Continue to monitor on telemetry Labs at time were unremarkable Never lost consciousness, no ACLS necessary #Hyperlipidemia Checking lipid panel Continuing atorvastatin #DVT ppx: Aditya Kohler MD Charges/Coding Visit Charges Inpatient E&M: 47314 Subs Hosp L2
[2022-07-30] MEDS: Aspirin 81 MG TAB.CHEW PO (13:53)
[2022-07-30] MEDS: Enoxaparin 40 MG/0.4 ML Syringe SC (13:53)
[2022-07-30 15:16] LABS: Troponin-I HS 6 pg/mL (3.0-78.0)
[2022-07-30 19:51] LABS: Troponin-I HS 5 pg/mL (3.0-78.0)
[2022-07-30] MEDS: Atorvastatin Calcium 80 MG Tablet PO (21:42)
[2022-07-31] VITALS (11 sets, daily range): BP systolic 93–118; BP diastolic 56–77; PULSE 50–70; RESP 16–18; TEMP 36.4–36.8; O2SAT 92–98; BMI 27.2
[2022-07-31] MEDS: 0.9% Normal Saline 1,000 ML 75 ML IV ×2 (03:56→16:14)
[2022-07-31] MEDS: Aspirin 81 MG TAB.CHEW PO (08:53)
[2022-07-31] MEDS: Enoxaparin 40 MG/0.4 ML Syringe SC (08:53)
[2022-07-31 09:26] LABS: Absolute Lymphocyte Count 1.84 X10^3/uL (0.83-4.51); Basophil# 0.04 X10^3/uL; Basophil% 0.6 % (0-1); Eosinophil# 0.11 X10^3/uL; Eosinophils% 1.7 % (0-5); Hematocrit 41.6 % (40-54); Hemoglobin 14.8 g/dL (13.0-16.5); Lymphocyte # 1.84 X10^3/ul (0.83-4.51); Lymphocyte % 28.8 % (19-41); Mean Corp Hgb Conc 35.6 g/dL (32-36); Mean Corpuscular Hgb 32.1 pg (27.0-32.0); Mean Corpuscular Volume 90.2 fL (80-94); Mean Platelet Vol. 9.1 fl (6.2-12.0); Monocyte# 0.37 X10^3/uL; Monocyte% 5.8 % (0-10); NRBC Flagged by Analyzer 0 % (0-5); Neutrophil # 4.02 X10^3/uL (2.7-7.7); Neutrophil % 62.8 % (47-70); Platelet Count 173 K/mm3 (150-450); RBC Distribution Width SD 39.2 fl (35.1-43.9); Red Blood Count 4.61 M/mm3 (4.6-6.2); White Blood Count 6.4 K/mm3 (4.4-11.0)
[2022-07-31 10:03] LABS: ALB/GLOB Ratio 0.9 RATIO (0.9-2.4); AST(SGOT) 16 U/L (15-37); Alanine Aminotransfer ALT/SGPT 25 U/L (16-61); Alkaline Phosphatase 48 U/L (45-117); Anion Gap 3 (5-15); BUN 12 mg/dL (7-18); BUN/Creat Ratio 16.4 RATIO (10-20); Calcium,Total 8.7 mg/dL (8.5-10.1); Chloride 110 mmol/L (98-107); Creatinine, Serum 0.73 mg/dL (0.70-1.30); EST Glomerular Filtration Rate 116 mL/min (>60); Est Glom Filt Rate - Afr Amer 141 mL/min (>60); Estimated Creatinine Clearance 105.41 ml/min; Globulin 3.3 g/dL (2.2-4.2); Glucose 107 mg/dL (74-106); Potassium 3.7 mmol/L (3.5-5.1); Protein, Total 6.3 g/dL (6.4-8.2); Sodium Level 141 mmol/L (136-145)
--- NOTE | 2022-07-31 12:17 | PCM.PN.HOSP ---
Subjective Subjective Resting comfortably this morning, no complaints, seems to continue to improve Objective Data Objective Data Vital Signs: Vital Signs Temp Pulse Resp BP Pulse Ox O2 Del Method O2 Flow Rate 97.5 F L 64 16 113/68 98 Room Air 2 07/31/22 08:46 07/31/22 08:46 07/31/22 08:46 07/31/22 08:46 07/31/22 08:46 07/31/22 08:46 07/30/22 13:40 Oxygen Flow Rate (L/min) 2 Oxygen Delivery Method Room Air Weight: 81.2 kg Body Mass Index (BMI) 27.2 Intake & Output: Intake and Output for Last 24 Hours 07/29/22 07/30/22 07/31/22 23:59 23:59 23:59 Intake Total 2143.75 / 2143.75 2282.5 / 2282.5 986.25 / 986.25 Output Total 1250 / 1250 1700 / 1700 200 / 200 Balance 893.75 / 893.75 582.5 / 582.5 786.25 / 786.25 Lab / Micro Data Result Diagrams: 07/31/22 09:00 07/31/22 09:00 Labs: Laboratory Results - last 24 hr 07/30/22 12:07: Sodium 140, Potassium 3.7, Chloride 109 H, Carbon Dioxide 25.0, Anion Gap 6, BUN 15, Creatinine 0.82, Estim Creat Clear Calc 93.84, Est GFR (MDRD) Af Amer 123, Est GFR (MDRD) Non-Af 102, BUN/Creatinine Ratio 18.2, Glucose 113 H, Calcium 8.3 L, Magnesium 2.1, Troponin I High Sens 4 07/30/22 14:25: Troponin I High Sens 6 07/30/22 18:30: Troponin I High Sens 5 07/31/22 09:00: WBC 6.4, RBC 4.61, Hgb 14.8, Hct 41.6, MCV 90.2, MCH 32.1 H, MCHC 35.6, RDW Std Deviation 39.2, RDW Coeff of Whit 12.0, Plt Count 173, MPV 9.1, Immature Gran % (Auto) 0.300, Neut % (Auto) 62.8, Lymph % (Auto) 28.8, [place] % (Auto) 5.8, Eos % (Auto) 1.7, Baso % (Auto) 0.6, Absolute Neuts (auto) 4.0, Absolute Lymphs (auto) 1.84, Nucleated RBC % 0 07/31/22 09:00: Sodium 141, Potassium 3.7, Chloride 110 H, Carbon Dioxide 28.0, Anion Gap 3 L, BUN 12, Creatinine 0.73, Estim Creat Clear Calc 105.41, Est GFR (MDRD) Af Amer 141, Est GFR (MDRD) Non-Af 116, BUN/Creatinine Ratio 16.4, Glucose 107 H, Calcium 8.7, Total Bilirubin 2.20 H, AST 16, ALT 25, Alkaline Phosphatase 48, Total Protein 6.3 L, Albumin 3.0 L, Globulin 3.3, Albumin/Globulin Ratio 0.9 Micro: Microbiology 07/30/22 07:20 Nasal Secretion SARS-CoV-2 Antigen (Rapid) - Final Physical Exam Const alert and no apparent distress HEENT head/scalp atraumatic Eyes PERRL Eyes Narrative: Pupils equal Neck supple Resp normal respiratory effort and clear to auscultation bilaterally Cardio regular rate and regular rhythm GI soft to palpation, non-tender and non-distended Extremity Extremity Narrative: Moved all extremities and was able to give thumbs up when asked Neuro Neuro Narrative: Moves all extremities, no facial droop noted, continues to seem able to comprehend questions but still has difficulty with verbal communication though more able to execute physical commands. Psych affect normal Assessment & Plan Assessment/Plan (1) Acute cerebrovascular accident (CVA): PLAN: Plan #Acute ischemic CVA CT/CTA in ED suggestive of thrombosis in one of the left-sided M2 and M3 branches within the left sylvian fissure with findings suggestive of left MCA territory infarct with no evidence of hemorrhage Spoke with ED physician who had discussed with neuro, they recommended 600 mg of Plavix and 325 of aspirin followed by aspirin 81 mg daily and no further Plavix at this time Troponin within normal limits and EKG was sinus rhythm Will order echo, MRI, lipid panel, A1c PT/OT/speech Admit to telemetry Neurochecks Permissive hypertension tPA not given due to last known normal at 10 PM last night, ED physician spoke with neuro who did not think he was a candidate for any additional intervention and recommended medical admission and intervention 07/29: Does continue to have difficulty executing commands and answering questions but is certainly improved from yesterday. Echo unremarkable. MRI confirmed left MCA infarct. Neurology formally consulted and should evaluate today. PT/OT. Formal speech eval today. Continue aspirin and statin 07/30: Spoke with neurology who evaluated, had TISH today that was unremarkable. Increased statin intensity. Continue aspirin. We will consider 30-day monitor on discharge. Continue to work with therapy, awaiting insurance decision for inpatient rehab 07/31: Awaiting inpatient rehab insurance decision, feel he is a very good candidate, continue PT/OT #Bradycardia Brief pause and bradycardia with diaphoresis Resolved independently Most likely vasovagal EKG without heart block or other abnormalities Continue to monitor on telemetry Labs at time were unremarkable Never lost consciousness, no ACLS necessary 07/31: On telemetry no further episodes #Hyperlipidemia Checking lipid panel Continuing atorvastatin #DVT ppx: Aditya Kohler MD Charges/Coding Visit Charges Inpatient E&M: 35523 Subs Hosp L2
[2022-07-31] MEDS: Atorvastatin Calcium 80 MG Tablet PO (21:33)
[2022-07-31] MEDS: 0.9% Saline Lock 10 ML Syringe IV (21:33)
[2022-08-01] VITALS (8 sets, daily range): BP systolic 113–125; BP diastolic 61–84; PULSE 53–65; RESP 16; TEMP 36.3–36.6; O2SAT 94–99; BMI 27.2
[2022-08-01] MEDS: 0.9% Normal Saline 1,000 ML 75 ML IV (05:00)
[2022-08-01 06:29] LABS: Absolute Lymphocyte Count 1.82 X10^3/uL (0.83-4.51); Absolute Neutrophil Count 3.3 X10^3/uL (2.0-7.7); Basophil# 0.02 X10^3/uL; Basophil% 0.4 % (0-1); Eosinophil# 0.19 X10^3/uL; Eosinophils% 3.3 % (0-5); Hematocrit 42.1 % (40-54); Hemoglobin 14.6 g/dL (13.0-16.5); Lymphocyte # 1.82 X10^3/ul (0.83-4.51); Lymphocyte % 31.9 % (19-41); Mean Corp Hgb Conc 34.7 g/dL (32-36); Mean Corpuscular Hgb 30.9 pg (27.0-32.0); Mean Corpuscular Volume 89.2 fL (80-94); Mean Platelet Vol. 9.7 fl (6.2-12.0); Monocyte# 0.34 X10^3/uL; NRBC Flagged by Analyzer 0 % (0-5); Neutrophil # 3.33 X10^3/uL (2.7-7.7); Neutrophil % 58.2 % (47-70); Platelet Count 195 K/mm3 (150-450); RBC Distribution Width CV 11.9 % (11.6-14.6); RBC Distribution Width SD 38.5 fl (35.1-43.9); Red Blood Count 4.72 M/mm3 (4.6-6.2); White Blood Count 5.7 K/mm3 (4.4-11.0)
[2022-08-01 06:50] LABS: Anion Gap 8 (5-15); BUN 13 mg/dL (7-18); BUN/Creat Ratio 18.5 RATIO (10-20); Calcium,Total 8.4 mg/dL (8.5-10.1); Chloride 107 mmol/L (98-107); EST Glomerular Filtration Rate 122 mL/min (>60); Est Glom Filt Rate - Afr Amer 147 mL/min (>60); Estimated Creatinine Clearance 109.93 ml/min; Glucose 95 mg/dL (74-106); Potassium 3.5 mmol/L (3.5-5.1); Sodium Level 141 mmol/L (136-145)
[2022-08-01] MEDS: Aspirin 81 MG TAB.CHEW PO (09:47)
[2022-08-01] MEDS: Enoxaparin 40 MG/0.4 ML Syringe SC (09:47)
--- NOTE | 2022-08-01 12:40 | PN.HOSP_ITS ---
Subjective Subjective Doing well today, no complaints Objective Data Objective Data Vital Signs: Vital Signs Temp Pulse Resp BP Pulse Ox O2 Del Method O2 Flow Rate 97.3 F L 53 L 16 121/84 H 96 Room Air 2 08/01/22 09:43 08/01/22 09:43 08/01/22 09:43 08/01/22 09:43 08/01/22 09:43 08/01/22 09:50 07/30/22 13:40 Oxygen Flow Rate (L/min) 2 Oxygen Delivery Method Room Air Weight: 81.2 kg Body Mass Index (BMI) 27.2 Intake & Output: Intake and Output for Last 24 Hours 07/30/22 07/31/22 08/01/22 23:59 23:59 23:59 Intake Total 2282.5 / 2282.5 2807.50 / 2807.50 1238.75 / 1238.75 Output Total 1700 / 1700 1000 / 1000 Balance 582.5 / 582.5 1807.50 / 1807.50 1238.75 / 1238.75 Lab / Micro Data Result Diagrams: 08/01/22 05:10 08/01/22 05:10 Labs: Laboratory Results - last 24 hr 08/01/22 05:10: WBC 5.7, RBC 4.72, Hgb 14.6, Hct 42.1, MCV 89.2, MCH 30.9, MCHC 34.7, RDW Std Deviation 38.5, RDW Coeff of Whit 11.9, Plt Count 195, MPV 9.7, Immature Gran % (Auto) 0.200, Neut % (Auto) 58.2, Lymph % (Auto) 31.9, [place] % (Auto) 6.0, Eos % (Auto) 3.3, Baso % (Auto) 0.4, Absolute Neuts (auto) 3.3, Absolute Lymphs (auto) 1.82, Nucleated RBC % 0 08/01/22 05:10: Sodium 141, Potassium 3.5, Chloride 107, Carbon Dioxide 26.0, Anion Gap 8, BUN 13, Creatinine 0.70, Estim Creat Clear Calc 109.93, Est GFR (MDRD) Af Amer 147, Est GFR (MDRD) Non-Af 122, BUN/Creatinine Ratio 18.5, Glucose 95, Calcium 8.4 L Micro: Microbiology 07/30/22 07:20 Nasal Secretion SARS-CoV-2 Antigen (Rapid) - Final Physical Exam Const alert and no apparent distress HEENT head/scalp atraumatic Eyes PERRL Eyes Narrative: Pupils equal Neck supple Resp normal respiratory effort and clear to auscultation bilaterally Cardio regular rate and regular rhythm GI soft to palpation, non-tender and non-distended Extremity Extremity Narrative: Moved all extremities Neuro Neuro Narrative: Moving all extremities, more conversational Psych affect normal Assessment & Plan Assessment/Plan (1) Acute cerebrovascular accident (CVA): PLAN: Plan #Acute ischemic CVA CT/CTA in ED suggestive of thrombosis in one of the left-sided M2 and M3 branches within the left sylvian fissure with findings suggestive of left MCA territory infarct with no evidence of hemorrhage Spoke with ED physician who had discussed with neuro, they recommended 600 mg of Plavix and 325 of aspirin followed by aspirin 81 mg daily and no further Plavix at this time Troponin within normal limits and EKG was sinus rhythm Will order echo, MRI, lipid panel, A1c PT/OT/speech Admit to telemetry Neurochecks Permissive hypertension tPA not given due to last known normal at 10 PM last night, ED physician spoke with neuro who did not think he was a candidate for any additional intervention and recommended medical admission and intervention 07/29: Does continue to have difficulty executing commands and answering questions but is certainly improved from yesterday. Echo unremarkable. MRI confirmed left MCA infarct. Neurology formally consulted and should evaluate today. PT/OT. Formal speech eval today. Continue aspirin and statin 07/30: Spoke with neurology who evaluated, had TISH today that was unremarkable. Increased statin intensity. Continue aspirin. We will consider 30-day monitor on discharge. Continue to work with therapy, awaiting insurance decision for inpatient rehab 07/31: Awaiting inpatient rehab insurance decision, feel he is a very good candidate, continue PT/OT 08/01 awaiting inpatient insurance decision #Bradycardia Brief pause and bradycardia with diaphoresis Resolved independently Most likely vasovagal EKG without heart block or other abnormalities Continue to monitor on telemetry Labs at time were unremarkable Never lost consciousness, no ACLS necessary 07/31: On telemetry no further episodes #Hyperlipidemia Checking lipid panel Continuing atorvastatin #DVT ppx: Aditya Kohler MD Charges/Coding Visit Charges Inpatient E&M: 68713 Subs Hosp L2
[2022-08-01] MEDS: Atorvastatin Calcium 80 MG Tablet PO (20:48)
[2022-08-02] VITALS (8 sets, daily range): BP systolic 105–119; BP diastolic 62–79; PULSE 54–70; RESP 15–16; TEMP 36.3–36.6; O2SAT 95–99; BMI 27.2
[2022-08-02] MEDS: Aspirin 81 MG TAB.CHEW PO (09:01)
[2022-08-02] MEDS: Enoxaparin 40 MG/0.4 ML Syringe SC (09:01)
[2022-08-02 11:34] LABS: AST(SGOT) 18 U/L (15-37); Alanine Aminotransfer ALT/SGPT 28 U/L (16-61); Albumin, Serum 3.3 g/dL (3.2-5.0); Alkaline Phosphatase 48 U/L (45-117); Bilirubin, Direct 0.34 mg/dL (0.00-0.30); Globulin 3.4 g/dL (2.2-4.2); Protein, Total 6.7 g/dL (6.4-8.2)
--- NOTE | 2022-08-02 14:40 | PCM.PN.HOSP ---
Subjective Subjective Follow-up on acute CVA: Patient was seen and examined. He feels improved. He has slight dysarthria. Denies any weakness. Objective Data Objective Data Vital Signs: Vital Signs Temp Pulse Resp BP Pulse Ox O2 Del Method O2 Flow Rate 97.5 F L 64 16 119/65 96 Room Air 2 08/02/22 08:55 08/02/22 08:55 08/02/22 08:55 08/02/22 08:55 08/02/22 08:55 08/02/22 08:55 07/30/22 13:40 Oxygen Flow Rate (L/min) 2 Oxygen Delivery Method Room Air Weight: 81.2 kg Body Mass Index (BMI) 27.2 Intake & Output: Intake and Output for Last 24 Hours 07/31/22 08/01/22 08/02/22 23:59 23:59 23:59 Intake Total 2807.50 / 2807.50 2138.75 / 2138.75 Output Total 1000 / 1000 Balance 1807.50 / 1807.50 2138.75 / 2138.75 Lab / Micro Data Result Diagrams: 08/01/22 05:10 08/01/22 05:10 Labs: Laboratory Results - last 24 hr 08/02/22 05:10: Total Bilirubin 1.70 H, Direct Bilirubin 0.34 H, AST 18, ALT 28, Alkaline Phosphatase 48, Total Protein 6.7, Albumin 3.3, Globulin 3.4 Micro: Microbiology 07/30/22 07:20 Nasal Secretion SARS-CoV-2 Antigen (Rapid) - Final Physical Exam Narrative Physical exam: General: Alert, Oriented x3, Cooperative, No apparent distress HEENT: Atraumatic Oral: Moist Mucosa Neck: Supple Lungs: Clear to auscultation Cardiovascular: HS I+II, regular, no murmurs Abdomen: Bowel Sounds Present, Soft, Non Tender Extremities: No edema Skin: No rashes, No breakdown Neurological: Slight dysarthria present, power is over 5 in all extremities, normal tone Psych/Mental Status: Appropriate Assessment & Plan Assessment/Plan (1) Acute cerebrovascular accident (CVA): PLAN: Plan 1. Acute ischemic CVA in the left MCA distribution Seen on CT of the brain, CTA of the head and neck, MRI brain HbA1c is 5.3, total cholesterol 132, triglyceride 84, LDL 81, HDL 34 Continue aspirin, statin, 2D-echo showed EF 60%, trivial valve insufficiency PT/OT/ST consulted to evaluate and treat Awaiting discharge planning ongoing 2. Bradycardia, likely vagal, not on the blockers 3. Hyperlipidemia, continue on statin 4. DVT ppx- Lovenox SC Charges/Coding Visit Charges Inpatient E&M: 05584 Subs Hosp L2
--- NOTE | 2022-08-02 15:17 | CASEMGMT ---
SW spoke with patient and his . SW explained we are still waiting on insurance to give approval. SW also let them know it is possible he could get denied as patient is doing so much better. SW explained that right now therapy and physician feel that if he does get denied outpatient would be best for patient. SW let them know SW will let them know as soon as SW hears something. Shama Ruiz [employer] OPERATOR JJ
[2022-08-02] MEDS: Atorvastatin Calcium 80 MG Tablet PO (22:50)
[2022-08-03] VITALS (8 sets, daily range): BP systolic 98–103; BP diastolic 65–72; PULSE 56–75; RESP 15–20; TEMP 36.3–36.7; O2SAT 92–96; BMI 27.2
[2022-08-03] MEDS: Enoxaparin 40 MG/0.4 ML Syringe SC (08:51)
[2022-08-03] MEDS: Aspirin 81 MG TAB.CHEW PO (08:51)
[2022-08-03] MEDS: Glycerin/Hypromellose/PEG400 15 ml Bottle 2 DRP EACH EYE (12:49)
--- NOTE | 2022-08-03 15:27 | CASEMGMT ---
JERMAINE spoke with Ana in Rehab. Ana checked in with insurance and they told her they are still reviewing and that it could take up to 15 days to review. JERMAINE notified physician. JERMAINE will also talk with patient and his . Shama Ruiz [employer] JJ
--- NOTE | 2022-08-03 15:39 | PCM.PN.HOSP ---
Subjective Subjective Follow-up on acute CVA: Patient was seen and examined. No acute events overnight. He denies any weakness or numbness in the limbs Objective Data Objective Data Vital Signs: Vital Signs Temp Pulse Resp BP Pulse Ox O2 Del Method O2 Flow Rate 97.3 F L 72 20 H 98/69 92 Room Air 2 08/03/22 10:08 08/03/22 15:02 08/03/22 10:08 08/03/22 10:08 08/03/22 10:08 08/03/22 13:15 07/30/22 13:40 Oxygen Flow Rate (L/min) 2 Oxygen Delivery Method Room Air Weight: 81.2 kg Body Mass Index (BMI) 27.2 Intake & Output: Intake and Output for Last 24 Hours 08/01/22 08/02/22 08/03/22 23:59 23:59 23:59 Intake Total 2138.75 / 2138.75 900 / 900 300 / 300 Balance 2138.75 / 2138.75 900 / 900 300 / 300 Lab / Micro Data Result Diagrams: 08/01/22 05:10 08/01/22 05:10 Micro: Microbiology 07/30/22 07:20 Nasal Secretion SARS-CoV-2 Antigen (Rapid) - Final Physical Exam Narrative Physical exam: General: Alert, Oriented x3, Cooperative, No apparent distress HEENT: Atraumatic Oral: Moist Mucosa Neck: Supple Lungs: Clear to auscultation Cardiovascular: HS I+II, regular, no murmurs Abdomen: Bowel Sounds Present, Soft, Non Tender Extremities: No edema Skin: No rashes, No breakdown Neurological: Slight dysarthria present, power is over 5 in all extremities, normal tone Psych/Mental Status: Appropriate Assessment & Plan Assessment/Plan (1) Acute cerebrovascular accident (CVA): PLAN: Plan 1. Acute ischemic CVA in the left MCA distribution Seen on CT of the brain, CTA of the head and neck, MRI brain HbA1c is 5.3, total cholesterol 132, triglyceride 84, LDL 81, HDL 34 Continue aspirin, statin, 2D-echo showed EF 60%, trivial valve insufficiency PT/OT/ST consulted to evaluate and treat Awaiting discharge planning ongoing 2. Bradycardia, likely vagal, not on the blockers 3. Hyperlipidemia, continue on statin 4. DVT ppx- Lovenox SC Charges/Coding Visit Charges Inpatient E&M: 64513 Subs Hosp L2
[2022-08-03] MEDS: Atorvastatin Calcium 80 MG Tablet PO (21:34)
[2022-08-04 03:00] VITALS: PULSE 64
[2022-08-04 03:27] VITALS: BP 101/64; PULSE 68; RESP 18; TEMP 36.3; O2SAT 95
--- NOTE | 2022-08-04 07:00 | NURSING ---
Charting reviewed with Kojo FRIEDMAN.
[2022-08-04 07:12] VITALS: PULSE 74
[2022-08-04] MEDS: Enoxaparin 40 MG/0.4 ML Syringe SC (08:45)
[2022-08-04] MEDS: Aspirin 81 MG TAB.CHEW PO (08:45)
[2022-08-04] MEDS: Glycerin/Hypromellose/PEG400 15 ml Bottle 2 DRP EACH EYE (08:45)
--- NOTE | 2022-08-04 08:45 | CASEMGMT ---
SW received notification that patient was approved for Inpatient Rehab. SW notified physician and racing secretary. SW went to patient's room and let him know as well. RN notified patient's and she came in to see patient before he was transferred. Plan: d/c to [facility] 4th floor Inpatient Rehab Unit. Shama GARDNER
--- NOTE | 2022-08-04 08:49 | PCM.DC ---
Discharge Instructions Diet Discharge Diet: Low fat / Low cholesterol and 2000 mg Sodium Diet Activity Discharge Activity: Return to Normal Activity Follow Up Care Test Results: Test results from this visit will be discussed in further detail at your follow-up appointment, if applicable. Discharge Plan Admission Admit Date/Time: 07/28/22 08:14 Primary Reason for Your Visit: Acute CVA Attending Provider: Yuliana Head Primary Care Provider: Babak Cosme Consulting Providers: Tamiko Kohler Instructions Additional Instructions / Restrictions: Cardiac event monitor on discharge Discharge Orders/Prescriptions Prescriptions: New atorvastatin 80 mg Tablet 80 mg PO QHS Qty: 0 0RF aspirin 81 mg Tablet,Chewable 81 mg PO BREAKFAST Qty: 0 0RF Continued fluticasone propionate 50 mcg/actuation spray,suspension 1 spray intranasal DAILY Rx Instructions: administer into each nostril oxymetazoline [Afrin (oxymetazoline)] 0.05 % spray,non-aerosol 1 spray intranasal ONCE Discontinued atorvastatin 40 mg tablet 40 mg PO DAILY Other Ambulatory Orders: 30 Day Event Recorder Preventi (Urgent) Timeframe: 1 Day Facility: [facility] - Location: Cardiovascular Services Ordered By: Dr. Yuliana Head Referrals / Follow Up: Babak Cosme MD [Primary Care Provider] - Within 1 Week Seven Deutsch MD [Non-Staff -Ordering Privileges] - Within 1 Month Disposition Disposition (needs filled in before D/C Order can be placed): Inpatient Rehab Unit/Facility
--- NOTE | 2022-08-04 08:55 | PCM.DC.SUM ---
Providers Date of Admission: 07/28/22 Date of Discharge: 08/04/22 Primary Care Physician: Dr. Babak Cosme MD Reason For Visit: CVA Diagnosis Discharge Diagnosis (1) Acute cerebrovascular accident (CVA): Status: Acute Code(s): I63.9 - Cerebral infarction, unspecified Plan 1. Acute ischemic CVA in the left MCA distribution 2. Bradycardia, likely vagal 3. Hyperlipidemia Medications at Discharge Home Medications fluticasone propionate 50 mcg/actuation nasal spray,suspension 1 spray intranasal DAILY Allergies 10/13/21 oxymetazoline 0.05 % nasal spray (Afrin (oxymetazoline)) 1 spray intranasal ONCE 10/13/21 aspirin 81 mg chewable tablet 81 mg PO BREAKFAST Heart health 08/04/22 atorvastatin 80 mg tablet 80 mg PO QHS Cholestrol 08/04/22 Hospital Course Operations None Procedures None Summary of Care Provided Minutes Spent on Discharge: 35 Hospital Course: 61-year-old with past medical history of dyslipidemia who comes in with confusion that happened on the morning of admission. Patient was last known to be normal at 10 PM on 07/27/22. His family found him to have expressive/receptive aphasia with right-sided weakness. He was brought to the emergency room. He was a stroke alert. [facility] teleneurology initially saw him, CTA of the head and neck showed distal M2/M3 thrombus that was not felt to be amendable to intervention. Patient was also out of window for tPA. Patient was given Plavix 70 mg and aspirin 325 mg then aspirin 81 mg. Patient was admitted to the PCU, and monitored via the stroke protocol. MRI of the brain was significant for partial left MCA territory ischemic stroke. 2D echo had normal EF with negative bubble study. Telemetry was negative for atrial fibrillation. His HbA1c was within normal levels. LDL was elevated. Patient was managed on aspirin 81 mg daily, Lipitor 40 mg p.o. daily. He was seen by PT/OT/ST. His symptoms slowly improved with very minimal dysarthria noted. Patient was approved for discharge to acute rehab. Physical Exam Narrative Physical exam: General: Alert, Oriented x3, Cooperative, No apparent distress HEENT: Atraumatic Oral: Moist Mucosa Neck: Supple Lungs: Clear to auscultation Cardiovascular: HS I+II, regular, no murmurs Abdomen: Bowel Sounds Present, Soft, Non Tender Extremities: No edema Skin: No rashes, No breakdown Neurological: Slight dysarthria present, power is over 5 in all extremities, normal tone Psych/Mental Status: Appropriate Weight / BMI Weight Weight: 81.2 kg Body Mass Index (BMI) 27.2 ABG / Lab / Microbiology Data Result Diagrams: 08/01/22 05:10 08/01/22 05:10 Microbiology: Microbiology 07/30/22 07:20 Nasal Secretion SARS-CoV-2 Antigen (Rapid) - Final D/C Instructions Discharge Diet: Low fat / Low cholesterol and 2000 mg Sodium Diet Meaningful Use Info Meaningful Use Diagnoses (Choose all that apply): Ischemic CVA CVA Therapy Assessed for PT,OT and/or ST?: Yes Ischemic Stroke Antithrombotic order at d/c?: Yes Dx of Atrial fib/flutter?: No Anticoagulant at discharge?: No Reason anticoagulant not ordered: Treatment not Indicated Statins at discharge?: Yes Primary Dx Acute Ischemic CVA?: Yes IV tPA ordered during stay?: No Reason IV t-PA not ordered: Procedure not Indicated Discharge Plan Admission Admit Date/Time: 07/28/22 08:14 Primary Reason for Your Visit: Acute CVA Attending Provider: Yuliana Head Primary Care Provider: Babak Cosme Consulting Providers: Tamiko Kohler Instructions Additional Instructions / Restrictions: Cardiac event monitor on discharge Discharge Orders/Prescriptions Prescriptions: Continued fluticasone propionate 50 mcg/actuation spray,suspension 1 spray intranasal DAILY Rx Instructions: administer into each nostril oxymetazoline [Afrin (oxymetazoline)] 0.05 % spray,non-aerosol 1 spray intranasal ONCE Discontinued atorvastatin 40 mg tablet 40 mg PO DAILY No Action atorvastatin 80 mg tablet 80 mg PO QHS aspirin 81 mg tablet,chewable 81 mg PO BREAKFAST Other Ambulatory Orders: 30 Day Event Recorder Preventi (Urgent) Timeframe: 1 Day Facility: [facility] - Location: Cardiovascular Services Ordered By: Dr. Yuliana Head Referrals / Follow Up: Babak Cosme MD [Primary Care Provider] - Within 1 Week Seven Deutsch MD [Non-Staff -Ordering Privileges] - Within 1 Month Disposition Disposition (needs filled in before D/C Order can be placed): Inpatient Rehab Unit/Facility Charges/Coding Visit Charges Inpatient E&M: 29080 Disch Hosp
[2022-08-04 09:30] VITALS: BP 107/69; PULSE 65; RESP 18; TEMP 36.4; O2SAT 92
--- NOTE | 2022-08-04 09:51 | CASEMGMT ---
Loop recorder ordered for pt. Call to Ana in Rehab and she states pt can have it over there but it cannot be billed on rehab stay. Script to be sent with pt to rehab and they will have it set up for pt on discharge from IP rehab. Estephania, PCU charge, and Rell FRIEDMAN aware. Radha FRIEDMAN CM
--- NOTE | 2022-08-04 10:09 | NURSING ---
Report called to rehab unit to nurse Morales. Will assume care of pt at this time
--- NOTE | 2022-08-04 10:13 | PHA.DC.MR ---
Pharmacy Service has performed discharge medication reconciliation for this patient. The patient's discharge medication list was reviewed for discrepancies and discrepancies were resolved. Home Medications fluticasone propionate 50 mcg/actuation nasal spray,suspension 1 spray intranasal DAILY 10/13/21 oxymetazoline 0.05 % nasal spray (Afrin (oxymetazoline)) 1 spray intranasal ONCE 10/13/21 aspirin 81 mg chewable tablet 81 mg PO BREAKFAST #0 tabs 08/04/22 atorvastatin 80 mg tablet 80 mg PO QHS #0 tabs 08/04/22
--- NOTE | 2022-08-04 10:15 | NURSING ---
Pt wheeled over in WC to rehab unit by PILING CUTTER
== END 2022-08-04 10:15 | DRG 65 ==
LOC: ED 08:07 → PCU 08:48
PROVIDERS: Admitting Provider Internal Medicine; Emergency Provider Emergency Medicine; PCP Family Medicine; Visit Provider Internal Medicine
DX: I63.312 Cerebral infarction due to thrombosis of left middle cerebral artery (principal); G81.91 Hemiplegia, unspecified affecting right dominant side; R47.01 Aphasia; E78.5 Hyperlipidemia, unspecified; R00.1 Bradycardia, unspecified; R47.1 Dysarthria and anarthria; R29.810 Facial weakness; Z20.822 Contact with and (suspected) exposure to COVID-19; Z79.82 Long term (current) use of aspirin; R29.712 NIHSS score 12
CPT/HCPCS: 36415; 70450; 70496; 70498; 70553; 71045; 74230; 80048; 80053; 80061; 80076; 82962; 83036; 83735; 84439; 84443; 84484; 85025; 85610; 85730; 87426; 92507; 92523; 92610; 92611; 93005; 93306; 93312; 93320; 93325; 94762; 97110; 97116; 97162; 97167; 97530; 97535; 99285; A9575; J7030; J7040; Q9967; A4216

== ENCOUNTER 2022-08-04 10:25 | Inpatient (IN) | payer BC, SELFPAY ==
[2022-08-04 10:39] VITALS: BP 102/62; PULSE 75; RESP 18; TEMP 36.8; O2SAT 93
[2022-08-04 16:04] VITALS: O2SAT 98
[2022-08-04] MEDS: Ensure Plus High Protein 120 ML LIQUID PO (17:32)
[2022-08-04 20:15] VITALS: BP 110/71; PULSE 70; RESP 14; TEMP 37.1; O2SAT 98
[2022-08-04] MEDS: Senna/Docusate Sodium 1 Tablet 2 TABLET PO (22:11)
[2022-08-04] MEDS: Atorvastatin Calcium 80 MG Tablet PO (22:12)
[2022-08-05 06:39] LABS: Hematocrit 46.6 % (40-54); Hemoglobin 16.5 g/dL (13.0-16.5); Mean Corp Hgb Conc 35.4 g/dL (32-36); Mean Corpuscular Hgb 31.6 pg (27.0-32.0); Mean Corpuscular Volume 89.3 fL (80-94); Mean Platelet Vol. 9.4 fl (6.2-12.0); Platelet Count 236 K/mm3 (150-450); RBC Distribution Width CV 12.1 % (11.6-14.6); RBC Distribution Width SD 38.8 fl (35.1-43.9); Red Blood Count 5.22 M/mm3 (4.6-6.2); White Blood Count 6.9 K/mm3 (4.4-11.0)
[2022-08-05 06:56] LABS: AST(SGOT) 41 U/L (15-37); Alanine Aminotransfer ALT/SGPT 105 U/L (16-61); Albumin, Serum 3.5 g/dL (3.2-5.0); Alkaline Phosphatase 58 U/L (45-117); Anion Gap 4 (5-15); BUN 30 mg/dL (7-18); BUN/Creat Ratio 34.8 RATIO (10-20); Calcium,Total 8.6 mg/dL (8.5-10.1); Chloride 109 mmol/L (98-107); Creatinine, Serum 0.86 mg/dL (0.70-1.30); EST Glomerular Filtration Rate 96 mL/min (>60); Est Glom Filt Rate - Afr Amer 117 mL/min (>60); Estimated Creatinine Clearance 89.48 ml/min; Globulin 3.6 g/dL (2.2-4.2); Glucose 115 mg/dL (74-106); Magnesium 2.2 mg/dL (1.6-2.6); Phosphorus 3.5 mg/dL (2.5-4.9); Potassium 4.1 mmol/L (3.5-5.1); Protein, Total 7.1 g/dL (6.4-8.2); Sodium Level 141 mmol/L (136-145)
[2022-08-05 06:59] VITALS: O2SAT 91
[2022-08-05 08:41] VITALS: BP 107/63; PULSE 71; RESP 16; TEMP 36.9; O2SAT 94
[2022-08-05] MEDS: Fluticasone 0.05% 1 SPRAY NASAL.SRY NASAL (09:08)
[2022-08-05] MEDS: Aspirin 81 MG TAB.CHEW PO (09:09)
[2022-08-05] MEDS: Ensure Plus High Protein 120 ML LIQUID PO (09:10)
--- NOTE | 2022-08-05 14:25 | HP.PCM_ITS ---
[facility] - General General Date of Admission: 08/04/22 Date of Service: 08/05/22 Chief Complaint: Physical debility due to ischemic CVA. HPI Narrative TOMY ROTHMAN, is a 61 YO M with a PMH of hyperlipidemia, degenerative disc disease of the lumbar spine and allergic rhinitis who presented to the [facility] emergency department on 07/28/2022 at 8 AM complaining of difficulty getting his speech out and right side weakness with gait instability. He had last been seen normal at 10 PM the night before. Stat noncontrast CT brain showed findings suggestive of thrombosis of the left M2 and M3 branches within the sylvian fissure with findings suggestive of a left middle cerebral artery territory infarct. There was no evidence of hemorrhage. CTA of the head and neck showed findings suggestive of thrombosis of the left- sided M2 branches with no CTA evidence of hemodynamically significant stenosis, thrombosis or dissection of the arteries of the neck. MRI of the brain done approximately 1 hour after presenting to the emergency department showed acute ischemia in the left MCA distribution. Transthoracic echocardiogram showed no significant valvular heart disease, a normal ejection fraction, no evidence of diastolic dysfunction and the bubble study was negative for right to left shunt. The ER physician contacted neurology and he was not a candidate for any intervention secondary to being outside the window for tPA. They recommended Plavix 600 mg x 1 and 325 mg of aspirin to be given followed by aspirin 81 mg daily. He was admitted to the hospitalist service. A transesophageal echocardiogram was done on 07/29/2022 and showed a normal ejection fraction with no spontaneous contrast in the left atrium and no thrombus noted in the left atrial appendage. Significant lab included a hemoglobin A1c of 5.3%, LDL of 81 with an HDL of 34 normal TSH of 0.32 and a free T4 of 1.11. Consult was obtained with [facility] teleneurology. Recommendation was given for increasing Lipitor to 80 mg since his LDL on 40 mg of Lipitor is still greater than 70. While in the hospital he was seen by PT/OT and ST and acute inpt rehab was recommended at [place] from his acute hospital stay. He was transferred to the acute inpt rehab unit at [facility] on 08/04/22 for 3 hours of therapy daily to restore function/independence at or near his level prior to the stroke. [facility] Medical History (Updated 08/05/22 @ 15:[address] Marquita Escoto DO) Allergic rhinitis Degenerative disc disease, lumbar Hyperlipidemia Home Medications fluticasone propionate 50 mcg/actuation nasal spray,suspension 1 spray intranasal DAILY Allergies 10/13/21 [History Last Taken Unknown] oxymetazoline 0.05 % nasal spray (Afrin (oxymetazoline)) 1 spray intranasal ONCE 10/13/21 [History Last Taken Unknown] aspirin 81 mg chewable tablet 81 mg PO BREAKFAST Heart health 08/04/22 [History Last Taken Unknown] atorvastatin 80 mg tablet 80 mg PO QHS Cholestrol 08/04/22 [History Last Taken Unknown] Allergy/AdvReac Type Severity Reaction Status Date / Time No Known Allergies Allergy Verified 11/26/21 09:09 Family History Father Cancer bladder cancer Surgical History History of prostate surgery Hx of basal cell carcinoma excision Previous back surgery Social History (Updated 08/05/22 @ 15:[address] 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 [employer] pets and animals: Yes (guinea pigs) Smoking Status: Never smoker alcohol intake: current alcohol intake frequency: holidays/special occasions only Alcohol type: wine details: mostly holidays ans special occasions.......never overindulges substance use type: does not use caffeine: Yes (3-4 cups of tea a day, occasional cup of coffee, no energy drinks) Type: coffee, tea Number of servings: 4 and other ROS Constitutional Constitutional: Denies anorexia, change in weight, night sweats or weakness Eyes Eyes: Denies blurry vision, change in vision, eye pain or loss of vision ENT HEENT: Denies abnormal hearing, dysphagia, headache(s) or hearing loss Cardiovascular Cardiovascular: Denies chest pain, dyspnea on exertion, edema, lightheadedness, orthopnea, palpitations, paroxysmal nocturnal dyspnea or syncope Respiratory/Chest Respiratory/Chest: Denies cough, dyspnea, shortness of breath at rest, shortness of breath with exertion or wheezing Gastrointestinal Gastrointestinal: Denies abdominal pain, constipation, diarrhea, dyspepsia, nausea or vomiting Genitourinary Genitourinary: Denies dysuria or hematuria Musculoskeletal Musculoskeletal: Reports back pain; Denies joint pain, joint swelling or neck pain Integumentary Integumentary: Denies jaundice, pruritus, rash or wounds Neurologic Neurologic: Reports abnormal speech and other Details: having expressive aphasia and expressive aphasia but, is doing much better with speech than he did in the ED where he could not speak at all. ; Denies focal weakness, headache(s), numbness, seizures, tingling, tremor(s) or weakness Psychiatric Psychiatric: Denies anxiety, depression, homicidal ideation or suicidal ideation Endocrine Endocrinology: Denies change in body appearance, polydipsia or polyuria Hematologic/Lymphatic Hematologic/Lymphatic: Denies easy bleeding or easy bruising Allergic/Immunologic Allergic/Immunologic: Reports rhinitis; Denies eczemia or asthma Vital Signs Vital Signs Vital Signs: 08/04/22 16:04 08/04/22 20:15 08/05/22 06:59 Temperature 98.8 F Temperature Source Temporal Pulse Rate 70 Respiratory Rate 14 Blood Pressure 110/71 Blood Pressure Mean 84 Blood Pressure Source Monitor Blood Pressure Position Semi-Fowlers Blood Pressure Location Right Arm Pulse Ox 98 98 91 Oxygen Delivery Method Room Air Room Air Room Air 08/05/22 08:41 Temperature 98.4 F Temperature Source Temporal Pulse Rate 71 Respiratory Rate 16 Blood Pressure 107/63 Blood Pressure Mean 77 Blood Pressure Source Monitor Blood Pressure Position Semi-Fowlers Blood Pressure Location Right Arm Pulse Ox 94 Oxygen Delivery Method Room Air Weight Weight: 179 lb 0.246 oz Indicators for Scoring Admitted with or Primary Diagnosis of CVA/Stroke: Yes Hx of CVA/Stroke: No Modified [place] Score MRS Score at time of Evaluation: 2-Slight disability NIHSS NIHSS 1a. Level of Consciousness: Alert; keenly responsive 1b. LOC Questions: Answers BOTH questions correctly. 1c. LOC Commands: Performs both tasks correctly. 2. Best Gaze: Normal 3. Visual: No visual loss 4. Facial Palsy: Minor paralysis (flattened nasolabial fold, asymmetry on smiling) 5a. Left Arm: No drift; arm holds 90 (or 45) degrees for full 10 seconds 5b. Right Arm: No drift; arm holds 90 (or 45) degrees for full 10 seconds 6a. Left Leg: No drift; leg holds 30-degree position for full 5 seconds 6b. Right Leg: No drift; leg holds 30-degree position for full 5 seconds 7. Limb Ataxia: Absent 8. Sensory: Normal; no sensory loss 9. Best Language: [id number] aphasia; 10. Dysarthria: Normal 11. Extinction and Inattention: No abnormality Total: 2 Stroke Questions Stroke Team Activated: No Physical Exam Const alert and no apparent distress Constitutional Narrative: Oriented to person and the month. Had some difficulty coming up with July but, was ultimately able to tell me July after a minute or two. Was able to tell me his age and job and where he works. General Appearance: cooperative and well developed HEENT normocephalic and head/scalp atraumatic HEENT Narrative: Tongue protrudes on the midline. Mouth: dry mucous membranes Eyes PERRL and EOMs intact bilaterally Eyes Narrative: visual clark are intact Neck supple, no JVD, No nodes and no carotid bruits General: trachea midline Lymph Lymphatic: no lymphedema noted Resp normal respiratory effort, normal air movement and clear to auscultation bilaterally Resp Narrative: He is able to speak in complete sentences. Effort and Inspection: Negative for tachypneic, respiratory distress, labored or uses accessory muscles Cardio regular rate, regular rhythm, S1 normal heart sound, S2 normal heart sound, no murmurs, no rub and no gallops Cardio Narrative: Heart sounds are a bit distant. GI normal to inspection, nondistended, normoactive bowel sounds, soft to palpation and non-tender GI Narrative: No guarding with palpation Extremity normal capillary refill, no clubbing, cyanosis or edema and no calf tenderness Skin no wounds, no jaundice and no petechiae General Skin Exam: no breakdown Rashes: no rashes Neuro Neuro Narrative: mild facial weakness on the right with smile, short term memory is poor, Unable to remember any of the the 3 words I gave him after a few minutes. I explained to him his Lipitor was increased from 40-80 mg and he was not able to understand this and later asked what was 800. Following simple commands with no problem. Had trouble with naming objects......could not come up with feather and he thought the hammock was a sombrero. No dysarthria detected. Coordination / Balance: [id number] test normal and [id number] test normal Motor Exam: strength 5/5 throughout Psych cooperative, affect normal, denies homicidal ideation and denies suicidal ideation Appearance: appropriate Results Lab / Micro Data Result Diagrams: 08/05/22 06:30 08/05/22 06:30 Labs: Laboratory Results - last 24 hr 08/05/22 06:30: WBC 6.9, RBC 5.22, Hgb 16.5, Hct 46.6, MCV 89.3, MCH 31.6, MCHC 35.4, RDW Std Deviation 38.8, RDW Coeff of Whit 12.1, Plt Count 236, MPV 9.4 08/05/22 06:30: Sodium 141, Potassium 4.1, Chloride 109 H, Carbon Dioxide 28.0, Anion Gap 4 L, BUN 30 H, Creatinine 0.86, Estim Creat Clear Calc 89.48, Est GFR (MDRD) Af Amer 117, Est GFR (MDRD) Non-Af 96, BUN/Creatinine Ratio 34.8 H, Glucose 115 H, Calcium 8.6, Phosphorus 3.5, Magnesium 2.2, Total Bilirubin 0.90, AST 41 H, ALT 105 H, Alkaline Phosphatase 58, Total Protein 7.1, Albumin 3.5, Globulin 3.6, Albumin/Globulin Ratio 1.0 Assessment & Plan Assessment/Plan (1) Debility: (2) Acute cerebrovascular accident (CVA): (3) Dehydration: (4) Elevated BUN: (5) Elevated liver transaminase level: (6) Hyperlipidemia: (7) Daytime hypersomnia: PLAN: PLAN PT for gait stability OT for ADL's ST for evaluation Analgesics as needed Bowel protocol Fall precautions Assess for Anxiety/Depression GI prophylaxis -not indicated, no history of peptic ulcer disease or GI bleeds and no complaints of nausea or epigastric discomfort. DVT prophylaxis with enoxaparin Follow up with Dr. Babak Cosme and neurology following DC from IP Rehab. Will also need to follow-up with the [facility] following completion of the 30-day event monitor. AM lab including CMP, CBC, Mag and Phos-personally reviewed Encourage increased fluid intake Transaminases were normal at admission to the hospital and are now mildly elevated. Lipitor was increased to 80 mg daily. Will repeat Liver panel prior to DC and then should be repeated in 6 weeks. Charges/Coding Visit Charges Inpatient E&M: 69947 Init Hosp L3
--- NOTE | 2022-08-05 15:44 | PCM.RU.PYE ---
Admission Information Primary Diagnosis:: Debility secondary to acute ischemic CVA secondary to thrombus in the left M2 branches. Status Changes from Prescreening?: No changes Identified Actual Problem List:: Cognitve Impr/Memory Loss, Ineffective Communication, Know.Dfct/Disease Process, Fluid Change-Dehydration and Alteration-Leisure Activ. Potential Problem List:: DVT, Bleeding, Infection, UTI, Aspiration, Falls, Skin Integrity and Depression Risk of Complications DVT: LMWH, NILESH Hose and - (He is up and ambulating) Bleeding: Monitor Lab Values, Nursing to Teach Precautions for anti-coagulation therapy., Wound, if applicable, to be assessed every shift. and Stroke patients assessed for lethargy or change in status. Infection: Clinical Staff to Monitor for S/S of infection: and S/S of infection include fever, redness, warmth, etc. Urinary Tract Infection: Monitor for frequency, burning, discomfort, or incontinence. and Nursing will obtain urine sample for urinalysis and C&S when ordered. Aspiration: Clinical staff will monitor for coughing, drooling, congestion., Speech will evaluate swallowing and dsyphasia. and Nursing will monitor patient swallowing during meals. Falls: Patient will be evaluated for Fall Precautions and Patient will be placed on Fall Precautions as indicated per protocol. Skin Breakdown: Nursing will assess skin daily using assessment tool. and Nursing will place on Skin Breakdown Precautions as indicated. Pain: Clinical staff will assess patient's pain level per protocol., Medications will be given, if needed, and the pain level reassessed. and Other methods: Massage, distraction, decrease stimulus, etc. used PRN. Plan of Care Patient requires physician specializing in physical medicine and rehab oversight to provide close medical supervision of rehab issues including: Pain Management, Sleep Problems, Bowel and Bladder, Medical and co-morbidity Management, DVT prophylaxis, Rehabilitation Leadership and Coordination of treatment team Patient needs Physical Therapy: For a minimum of 1 hour and At least 5 out of 7 days Patient needs Physical Therapy to improve:: Mobility, Strengthening, Transfers, Stretching, ROM, Endurance, Stairs, Gait and Balance Patient needs Occupational Therapy: For a minimum of 1 hour and At least 5 out of 7 days Patient needs Occupational Therapy to improve ADL's incl.: Eating, Grooming, Bathing, Dressing, Toileting, Toilet transfers, Community Reintegration, Higher functioning activities, Household tasks, Adaptive Equipment, Splinting and Other activities as determined Patient requires speech therapy: For a minimum of 1 hour and At least 5 out of 7 days Patient requires speech therapy for: Swallowing, Cognition, Language Skills and Compensatory Strategies Patient requires 24/ Rehabilitation Nursing for: Pain Issues, Identifying and preventing risk factors, Monitoring and reporting current medical conditions, Assisting with ambulation, transfer, and all ADL's, Teaching patients about disease process and medications, Family teaching, Providing safe environment, Bowel and Bladder Issues, Skin integrity and Medication Management Patient needs Inspector Hot Forgings/ Case Management for: Discharge Planning, Arranging Home Equipment or Services and Family Interventions Patient needs Dietary and Nutrition Services for: Adequate Nutrition, Nutritional Supplements and Nutritional Education Goals Patient will remain: free from falls Patient will perform bed mobility at: MOD I level of assist. Patient will complete transfers from bed to chair at: MOD I level of assist. Patient will ambulate: - (300 ft independently) Patient will complete upper body dressing at: MOD I level of assist. Patient will complete lower body dressing at: MOD I level of assist. Patient will complete toileting at: MOD I level of assist. Patient will perform bathing at: MOD I level of assist. Patient will complete grooming at: MOD I level of assist. Patient will complete home management skills at: MOD I level of assist. Patient will achieve: 12 stairs (with 1 HR at SBA and 2 steps without rails to allow access to home. ) Patient will have pain level of: of 3 or less Patient's skin will: remain intact Patient will receive: adequate nutrition. Discharge Planning Pt Prognosis for Sig. Practical Improv. w/in Reasonable Time: Good Estimated Length of stay (days): 14 Anticipated D/C Destination: Home with Outpt Therapy Was Preadmission Assessment Accurate?: Yes Visit Charges Inpatient E&M: 87752 Subs Hosp L2
[2022-08-05 16:32] LABS: CRP < 2.90 mg/L (0.0-3.0)
[2022-08-05 16:50] LABS: Erythrocyte Sedimentation Rate 14 mm/hr (0-20)
[2022-08-05 20:45] VITALS: BP 103/54; PULSE 60; RESP 16; TEMP 36.2; O2SAT 97
[2022-08-05] MEDS: Atorvastatin Calcium 80 MG Tablet PO (20:48)
[2022-08-05] MEDS: Senna/Docusate Sodium 1 Tablet 2 TABLET PO (20:48)
[2022-08-05 21:42] VITALS: PULSE 60; O2SAT 96
[2022-08-06 06:26] VITALS: O2SAT 96
[2022-08-06 07:20] VITALS: BP 99/57; PULSE 58; RESP 16; TEMP 36.5; O2SAT 95
[2022-08-06] MEDS: Glycerin/Hypromellose/PEG400 15 ml Bottle 1 DRP EACH EYE (08:08)
[2022-08-06] MEDS: Senna/Docusate Sodium 1 Tablet 2 TABLET PO (08:08)
[2022-08-06] MEDS: Aspirin 81 MG TAB.CHEW PO (08:08)
[2022-08-06] MEDS: Enoxaparin 40 MG/0.4 ML Syringe SC (08:08)
[2022-08-06] MEDS: Fluticasone 0.05% 1 SPRAY NASAL.SRY NASAL (08:09)
[2022-08-06] MEDS: Ensure Plus High Protein 120 ML LIQUID PO ×2 (08:12→11:33)
[2022-08-06 12:53] VITALS: BP 103/55; BP 104/69; BP 110/68; PULSE 60; PULSE 70; PULSE 79
[2022-08-06 22:00] VITALS: BP 119/55; PULSE 67; RESP 16; TEMP 36.6; O2SAT 96
[2022-08-06] MEDS: Atorvastatin Calcium 80 MG Tablet PO (22:06)
[2022-08-07] MEDS: Aspirin 81 MG TAB.CHEW PO (07:57)
[2022-08-07] MEDS: Enoxaparin 40 MG/0.4 ML Syringe SC (07:57)
[2022-08-07] MEDS: Senna/Docusate Sodium 1 Tablet 2 TABLET PO ×2 (07:57→19:49)
[2022-08-07] MEDS: Fluticasone 0.05% 1 SPRAY NASAL.SRY NASAL (07:57)
[2022-08-07] MEDS: Ensure Plus High Protein 120 ML LIQUID PO ×3 (07:58→17:08)
[2022-08-07 09:20] VITALS: BP 100/59; PULSE 58; RESP 16; TEMP 36.2; O2SAT 96
[2022-08-07 09:30] VITALS: O2SAT 96
[2022-08-07 19:34] VITALS: BP 105/61; PULSE 65; RESP 18; TEMP 36.1; O2SAT 97
[2022-08-07] MEDS: Atorvastatin Calcium 80 MG Tablet PO (19:49)
[2022-08-08] MEDS: Fluticasone 0.05% 1 SPRAY NASAL.SRY NASAL (07:49)
[2022-08-08] MEDS: Ensure Plus High Protein 120 ML LIQUID PO (07:49)
[2022-08-08] MEDS: Aspirin 81 MG TAB.CHEW PO (07:49)
[2022-08-08] MEDS: Enoxaparin 40 MG/0.4 ML Syringe SC (07:49)
[2022-08-08] MEDS: Senna/Docusate Sodium 1 Tablet 2 TABLET PO ×2 (07:49→19:39)
[2022-08-08 08:07] VITALS: BP 98/56; PULSE 62; RESP 18; TEMP 37; O2SAT 95
[2022-08-08 19:07] VITALS: BP 103/56; PULSE 60; RESP 16; TEMP 36.2; O2SAT 97
[2022-08-08] MEDS: Atorvastatin Calcium 80 MG Tablet PO (19:38)
[2022-08-09] MEDS: Senna/Docusate Sodium 1 Tablet 2 TABLET PO ×2 (07:50→20:46)
[2022-08-09] MEDS: Enoxaparin 40 MG/0.4 ML Syringe SC (07:50)
[2022-08-09] MEDS: Aspirin 81 MG TAB.CHEW PO (07:50)
[2022-08-09] MEDS: Ensure Plus High Protein 120 ML LIQUID PO ×2 (07:50→16:40)
[2022-08-09] MEDS: Fluticasone 0.05% 1 SPRAY NASAL.SRY NASAL (07:51)
[2022-08-09 08:10] VITALS: BP 96/63; PULSE 59; RESP 16; TEMP 36.4; O2SAT 95
--- NOTE | 2022-08-09 13:30 | CASEMGMT ---
Social Work Team meeting held. Patient present as well as patient spouse, Marquita. Patient progressing in therapy. Team recommending for patient to continue with further care and treatment on the Rehab Unit. This social services designee communicating that insurance update is due on 08/11/2022 with no guarantee of continued stay approval. Patient plans to discharge to home with spouse at time of discharge. Speech and Occupational therapy recommend for patient to have outpatient therapy services when patient returns to the community. Patient and patient spouse agreeable to outpatient therapy recommendations and report that provider of choice is [facility]. Patient to continue with further care and treatment on the Rehab Unit. Social Work to continue to follow. Marc YBARRA, JJ-Lyndon
--- NOTE | 2022-08-09 14:20 | PCM.PROGNOTE ---
Subjective Subjective Peter was seen on team rounds today. His Mary was present in the room. Afebrile VSS Maintaining appropriate oxygen saturation on RA Oral intake is good but, not taking in as much fluid as I would like. Discussed with nursing - no problems that need addressed Reviewed the PT/OT/ST notes ST tells me that he is getting a little frustrated with the repetitive nature of ST. Medication list reviewed. BP is on the low side but, he has no lightheadedness and he is not on a antihypertensive. Denies CP, SOB, palpitations, dysuria, insomnia, N/V/C/D, abd pain and calf pain. He tells me that he gets pain in the gastrocnemius muscles near the knee but, only when he is running. No calf pain in bed today and he has not complained while in therapy. Objective Data Objective Data Vital Signs: Vital Signs Temp Pulse Resp BP Pulse Ox O2 Del Method FiO2 97.6 F L 59 L 16 96/63 95 Room Air 21 08/09/22 08:10 08/09/22 08:10 08/09/22 08:10 08/09/22 08:10 08/09/22 08:10 08/09/22 08:10 08/06/22 06:35 Oxygen Delivery Method Room Air Weight: 179 lb 0.246 oz Intake & Output: Intake and Output for Last 24 Hours 08/07/22 08/08/22 08/09/22 23:59 23:59 23:59 Intake Total 1740 / 1740 1440 / 1440 Balance 1740 / 1740 1440 / 1440 Lab / Micro Data Result Diagrams: 08/05/22 06:30 08/05/22 06:30 Physical Exam Const alert and no apparent distress Constitutional Narrative: He is getting distracted while we are talking today and fidgeting with his phone. He wanted to ask me a question and could not get the words out. He acted it out and talked around it and I was able to figure out he was talking about a BP cuff. He called out 3 numbers that did not make sense for a BP and I could not really understand what he wanted to know but, told him his BP was good. He is well kempt and lying in bed with no apparent distress. General Appearance: cooperative HEENT normocephalic Eyes PERRL and EOMs intact bilaterally Resp normal respiratory effort, normal air movement and clear to auscultation bilaterally Cardio regular rate, regular rhythm, no murmurs, no rub and no gallops GI normal to inspection, nondistended, normoactive bowel sounds, soft to palpation and non-tender GI Narrative: No guarding with palpation Extremity normal capillary refill and no calf tenderness General Extremity: Negative for cyanosis or edema Skin General Skin Exam: no breakdown Rashes: no rashes Assessment & Plan Assessment/Plan (1) Debility: PLAN: Continue therapy. (2) Acute cerebrovascular accident (CVA): PLAN: ST will be his biggest anurag. He is doing very well now with PT and OT and they are now working with him to problem solve while he is doing his therapy. today he was given places to find in the hospital while walking. (3) Dehydration: PLAN: Still with dry MM......we are encouraging increased fluid intake but, not taking as much as I would like. Will check a CMP today and if the BUN/CREAT ratio is still elevated > 20 will give IV fluids. I am concerned about the lower BP and increased risk for hypercoagulability and poor cerebral perfusion with decreased IV volume. (4) Hyperlipidemia: PLAN: Continue Lipitor. If the LFT's are still rising will need to consider decreasing the dose of the Atorvastatin. Consider adding 500 mg of Niaspan to increase the HDL. Check a CPK today since he gets calf pain with running. (5) Elevated liver transaminase level: PLAN: suspect due to the increase in the dose of Atorvastatin. (6) Elevated BUN: (7) Aphasia: PLAN: receptive and expressive. 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 IT puts him at risk for losing his job if he can not express himself or understand what is being asked of him. (8) Muscle weakness of right upper extremity: PLAN: Mostly hand weakness and this is improving. PLAN: Plan I am perplexed as to why he had a stroke. HE has never smoked, he exercises regularly and eats a healthy diet, he has been taking Lipitor and his does not have HTN or DM? No significant arterial stenosis in the head or the neck. ECHO did not show a PFO and the TISH did not show clot in the LA appendage. He did have COVID this March. Could he have an acquired coagulopathy? He denies hx of ME's, CVA's, VTE's in other family members. Will order a hypercoagulable panel. Charges/Coding Visit Charges Inpatient E&M: 57603 Subs Hosp L2
[2022-08-09 15:46] LABS: CPK Total, Creatine Kinase 51 U/L (39-308)
[2022-08-09 16:19] LABS: AST(SGOT) 35 U/L (15-37); Alanine Aminotransfer ALT/SGPT 96 U/L (16-61); Albumin, Serum 3.3 g/dL (3.2-5.0); Alkaline Phosphatase 50 U/L (45-117); Anion Gap 7 (5-15); BUN 25 mg/dL (7-18); BUN/Creat Ratio 27.4 RATIO (10-20); Calcium,Total 8.6 mg/dL (8.5-10.1); Chloride 105 mmol/L (98-107); Creatinine, Serum 0.91 mg/dL (0.70-1.30); EST Glomerular Filtration Rate 90 mL/min (>60); Est Glom Filt Rate - Afr Amer 109 mL/min (>60); Estimated Creatinine Clearance 84.56 ml/min; Globulin 3.2 g/dL (2.2-4.2); Glucose 133 mg/dL (74-106); Potassium 3.7 mmol/L (3.5-5.1); Protein, Total 6.5 g/dL (6.4-8.2); Sodium Level 141 mmol/L (136-145)
[2022-08-09 19:43] VITALS: BP 106/61; PULSE 78; RESP 18; TEMP 36.6; O2SAT 94
[2022-08-09] MEDS: Atorvastatin Calcium 80 MG Tablet PO (20:46)
[2022-08-10 07:28] VITALS: BP 105/61; PULSE 58; RESP 18; TEMP 36.6; O2SAT 97
[2022-08-10] MEDS: Senna/Docusate Sodium 1 Tablet 2 TABLET PO (08:07)
[2022-08-10] MEDS: Aspirin 81 MG TAB.CHEW PO (08:07)
[2022-08-10] MEDS: Enoxaparin 40 MG/0.4 ML Syringe SC (08:07)
[2022-08-10] MEDS: Fluticasone 0.05% 1 SPRAY NASAL.SRY NASAL (08:07)
[2022-08-10] MEDS: Glycerin/Hypromellose/PEG400 15 ml Bottle 1 DRP EACH EYE (08:12)
[2022-08-10] MEDS: Ensure Plus High Protein 120 ML LIQUID PO (15:33)
[2022-08-10 20:00] VITALS: BP 119/69; PULSE 72; RESP 18; TEMP 36.4; O2SAT 95
[2022-08-10 21:35] VITALS: O2SAT 95
[2022-08-10] MEDS: Atorvastatin Calcium 80 MG Tablet PO (21:38)
[2022-08-11 07:52] VITALS: BP 100/63; PULSE 71; RESP 18; TEMP 36.3; O2SAT 95
[2022-08-11] MEDS: Enoxaparin 40 MG/0.4 ML Syringe SC (08:12)
[2022-08-11] MEDS: Fluticasone 0.05% 1 SPRAY NASAL.SRY NASAL (08:12)
[2022-08-11] MEDS: Ensure Plus High Protein 120 ML LIQUID PO (08:12)
[2022-08-11] MEDS: Aspirin 81 MG TAB.CHEW PO (08:13)
[2022-08-11] MEDS: Senna/Docusate Sodium 1 Tablet 2 TABLET PO ×2 (08:13→20:23)
[2022-08-11] MEDS: Glycerin/Hypromellose/PEG400 15 ml Bottle 1 DRP EACH EYE (08:26)
[2022-08-11] MEDS: Atorvastatin Calcium 80 MG Tablet PO (20:23)
[2022-08-11 21:05] VITALS: BP 114/66; PULSE 70; RESP 17; TEMP 36.4; O2SAT 96
[2022-08-12 07:56] VITALS: BP 111/63; PULSE 57; RESP 16; TEMP 36.3; O2SAT 96
[2022-08-12] MEDS: Enoxaparin 40 MG/0.4 ML Syringe SC (08:16)
[2022-08-12] MEDS: Fluticasone 0.05% 1 SPRAY NASAL.SRY NASAL (08:16)
[2022-08-12] MEDS: Aspirin 81 MG TAB.CHEW PO (08:16)
[2022-08-12] MEDS: Glycerin/Hypromellose/PEG400 15 ml Bottle 1 DRP EACH EYE (08:16)
--- NOTE | 2022-08-12 09:34 | CASEMGMT ---
Social Work Received outcome from insurance update on 08/11 at 1900 issuing denial for continued stay - DC 08/12. SW met with pt to discuss outcome from insurance. Pt requesting this worker to speak with . SW spoke with and explained insurance outcome. Answered 's questions. agreeable to DC 08/[address] at [facility]. will be working from home for the remainder of August and will be with pt at home. All f/u appts will be made and DC instructions will be explained to pt and at time of DC. to transport pt after work about 1600. SW faxed referral to [facility] for ST. No DME needs. SW spoke with pt to update on DC today and not receiving therapy. Pt expressed understanding. Plan: DC home with family 08/12, [employer] TATE MaceW
--- NOTE | 2022-08-12 14:05 | PCM.DC ---
Discharge Instructions Diet Discharge Diet: - (Low salt and low fat, heart healthy diet. ) Activity Discharge Activity: May Not Drive Weight Bearing Status: Full weight bearing Dressing / Incision Call your doctor if you observe: Fever of 101 or Higher, Inability to urinate, Inability to have a bowel movement, Shortness of breath, Dizziness, Fainting spells, Swelling in the ankles, Chest pain, Increased palpitations (irregular heartbeat), Calf discomfort and Uncontrolled pain Follow Up Care Please Follow Up With: Babak Cosme MD When: 08/26/22 at 08:10 AM Test Results: Test results from this visit will be discussed in further detail at your follow-up appointment, if applicable. Pending Tests Upon Discharge: Hypercoagulable panel. Discharge Plan Admission Admit Date/Time: 08/04/22 10:25 Primary Reason for Your Visit: post stroke debility Attending Provider: Marquita Escoto Primary Care Provider: Babak Cosme Instructions Patient Instructions: Intimacy After Stroke, Effects of a Stroke on the ..., Aphasia: Improving Communication, Depression Affects Your Mind ..., Depression: Tips to Help Yourself, Discharge Instructions for Stroke, AFib Additional Instructions / Restrictions: 1. Fortunately the stroke did not significantly impair motor function on the R side of your body. You had a little weakness in the R hand but, that was about it. You are able to walk without and assistive device and about to do all your activities of daily living without assistance. The sad part is the stroke impaired your ability to get your words out, your memory and the speed of your thought processes. You have improved already but, you will need continued speech therapy after discharge. You are going to have this at [facility] with Marga. 2. Depression is not uncommon after a stroke. Progress is often slow with therapy and it can be very frustrating. I am giving you a paper to read about the signs and symptoms of depression. If you think you may be depressed please schedule an appt with Dr. Cosme. You may need psychotherapy and/or medication. There is help with this. 3. You will be receiving a 30 day event monitor in the mail as well as directions for how to apply the monitor. You will wear the monitor for 30 days to continuously record the hearts rhythm. After the 30 days are up your will follow up with cardiology (Dr. Kush Conrad) to reveal the results of the study and discuss need for treatment. 4. You can not drive yet due to the slowing of your thought processes and the increased risk to get involved in motor vehicle accidents. The neurologist (Dr. Vitaliy Gonzalez) will be able to tell you when you can drive again. There is a program in [place] for people who have had [place] to make sure they are safe to drive prior to resuming driving. The social science professor has given you information about the program. I recommend you attend this program to make sure it is safe for you to drive prior to driving in the community. 5. Goals for patients with strokes a. BP < 130/80 b. LDL < 70 c. HGBA1C < 7% d. No smoking e. Take all ordered medication f. Lose weight BMI < 25 6. Stroke symptoms: 1. Sudden numbness or weakness of the face, arm or leg especially if on one side of the body only 2. Sudden confusion, trouble speaking or understanding speech 3. Sudden trouble seeing in 1 eye or both eyes 4. Sudden trouble walking, dizziness, loss of balance or incoordination 5. Sudden severe headache with no known cause 7. Improvement with speech and cognitive function is slow after a stroke, more so than walking and dressing yourself. Try and be patient. You are making good improvement, keep at it. If you or Mary have any questions after you leave rehab pleases do not hesitate to call me. OFFICE: [phone] CELL: [phone] Discharge Orders/Prescriptions Prescriptions: New Artificial Tears([id number]) 1-0.2-0.2 % Drops 1 drp EACH EYE Q1H PRN (Reason: DRY EYES) Qty: 1 0RF Rx Instructions: 1 drop in affected eye every hour as needed for dry eyes Continued fluticasone propionate 50 mcg/actuation spray,suspension 1 spray intranasal DAILY Rx Instructions: administer into each nostril aspirin 81 mg tablet,chewable 81 mg PO BREAKFAST atorvastatin 80 mg tablet 80 mg PO QHS Qty: 30 0RF Discontinued oxymetazoline [Afrin (oxymetazoline)] 0.05 % spray,non-aerosol 1 spray intranasal ONCE Referrals / Follow Up: Dr Vitaliy Gonzalez [Other] - 08/18/22 12:30 pm (Neurology) Kush Conrad MD [Med Staff - Active Staff] - 10/13/22 11:00 am Babak Cosme MD [Primary Care Provider] - 08/26/22 8:10 am Disposition Disposition (needs filled in before D/C Order can be placed): Home, Self Care
--- NOTE | 2022-08-12 17:34 | DS.PCM_ITS ---
Providers Date of Admission: 08/04/22 Date of Discharge: 08/12/22 Primary Care Physician: Dr. Babak Cosme MD Reason For Visit: Ischemic CVA Diagnosis Discharge Diagnosis (1) Debility: Status: Acute Code(s): R53.81 - Other malaise Plan: Continue speech therapy as an OP at [facility]. (2) Acute cerebrovascular accident (CVA): Status: Acute Code(s): I63.9 - Cerebral infarction, unspecified Plan: ST will be his biggest anurag. He is doing very well now with PT and OT and they do not recommend OP follow up. He is ambulating without an AD and without any LOB at MOD I. (3) Dehydration: Status: Acute Code(s): E86.0 - Dehydration Plan: Still with dry MM......we are encouraging increased fluid intake and the dryness is better than at admission but, He is not drinking as much as I would like. Low BP's have come up with the increased fluid intake and he denies lightheadedness at DC. (4) Hyperlipidemia: Status: Acute Code(s): E78.5 - Hyperlipidemia, unspecified Plan: Continue Lipitor. (5) Elevated liver transaminase level: Status: Acute Code(s): R74.01 - Elevation of levels of liver transaminase levels Plan: Lipitor prior to the CVA was 40 mg and it was increased to 80 mg while in the acute hospital. They were rechecked prior to DC and the ALT is 96 with a n ormal AST at 35 and this is stable. He denies any muscle pain and the CPK is normal at 51. Would recheck a liver panel, lipid panel and possibly CK in 6 weeks. (6) Elevated BUN: Status: Acute Code(s): R79.9 - Abnormal finding of blood chemistry, unspecified Plan: Has come down somewhat during his admission and the low BP's have resolved with better hydration but, he is still not drinking as much as I would like. He is on no antihypertensives at DC. (7) Aphasia: Status: Acute Code(s): R47.01 - Aphasia Plan: Receptive and expressive. 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 It puts him at risk for losing his job if he can not express himself or understand what is being asked of him. Has improved somewhat since admission but, will need aggressive OP ST if he is to return to teaching in the fall. He plans on taking the next semester off to recover. (8) Muscle weakness of right upper extremity: Status: Acute Code(s): M62.81 - Muscle weakness (generalized) Plan: Mostly hand weakness and this is improving. Plan 1. I am perplexed as to why he had a stroke. He has never smoked, he exercises regularly and eats a healthy diet, he has been taking Lipitor and his does not have HTN or DM? No significant arterial stenosis in the head or the neck. ECHO did not show a PFO and the TISH did not show clot in the LA appendage. He did have COVID this March. Could he have an acquired coagulopathy? He denies hx of AR's, CVA's, VTE's in other family members. Will order a hypercoagulable panel. Hypercoagulable panel was sent and is still pending at the time of DC. 2. He will get a 30 days event monitor in the mail and then has follow up scheduled with Dr. Conrad. Medications at Discharge Home Medications fluticasone propionate 50 mcg/actuation nasal spray,suspension 1 spray intranasal DAILY Allergies 10/13/21 aspirin 81 mg chewable tablet 81 mg PO BREAKFAST Heart health 08/04/22 atorvastatin 80 mg tablet 80 mg PO QHS Cholestrol #30 tabs 08/12/22 peg [id number] 1 %-0.2 %-0.2 % eye drops (Artificial Tears ([id number])) 1 drp EACH EYE Q1H PRN DRY EYES #1 BOTTLE 08/12/22 Hospital Course Operations None Procedures Transesophageal Echo (Interpretation Summary Left ventricular systolic function is normal. The estimated ejection fraction is 55 %. There is no sponatenous contrast in the left atrium. No thrombus is detected in the left atrial appendag e. Trivial mitral valve insufficiency. Trivial tricuspid valve insufficiency. Trivial ) and Transthoracic echo (nterpretation Summary Left ventricular systolic function is normal. The estimated ejection fraction is 60 %. Trivial mitral valve insufficiency. Trivial tricuspid valve insufficiency. Trivial pulmonic valve insufficiency. Trivial pericardial effusion. There are no echocardiographic indications of ca) Summary of Care Provided Minutes Spent on Discharge: 30 Hospital Course: ? TOMY ROTHMAN, is a 61 YO M with a PMH of hyperlipidemia, degenerative disc disease of the lumbar spine and allergic rhinitis who presented to the [facility] emergency department on 07/28/2022 at 8 AM com plaining of difficulty getting his speech out and right side weakness with gait instability. ? He had last been seen normal at 10 PM the night before.? Stat noncontrast CT brain showed findings suggestive of thrombosis of the left M2 and M3 branches within the sylvian fissure with findings suggestive of a left middle cerebral artery territory infarct.? There was no evidence of hemorrhage.? CTA of the head and neck showed findings suggestive of thrombosis of the left-sided M2 branches with no CTA evidence of hemodynamically significant stenosis, thrombosis or dissection of the arteries of the neck.? MRI of the brain done approximately 1 hour after presenting to the emergency department showed acute ischemia in the left MCA distribution.? Transthoracic echocardiogram showed no significant valvular heart disease, a normal ejection fraction, no evidence of diastolic dysfunction and the bubble study was negative for right to left shunt.? The ER physician contacted neurology and he was not a candidate for any intervention secondary to being outside the window for tPA.? They recommended Plavix 600 mg x 1 and 325 mg of aspirin to be given followed by aspirin 81 mg daily.? He was admitted to the hospitalist service.? A transesophageal echocardiogram was done on 07/29/2022 and showed a normal ejection fraction with no spontaneous contrast in the left atrium and no thrombus noted in the left atrial appendage.? Significant lab included a hemoglobin A1c of 5.3%, LDL of 81 with an HDL of 34, normal TSH of 0.32 and a NL free T4 of 1.11.? Telemetry monitoring while in the hospital did not show any AF. Consult was obtained with [facility].? Recommendation was given for increasing Lipitor to 80 mg since his LDL on 40 mg of Lipitor is still greater than 70.? While in the hospital he was seen by PT/OT and ST and acute inpt rehab was recommended at [facility] from his acute hospital stay.? He was transferred to the acute inpt rehab unit at [facility] on 08/04/22 for 3 hours of therapy daily to restore function/independence at or near his level prior to the stroke.? Lab done 1 day after admission to rehab showed mildly elevated transaminases with a AST of 41 and an ALT of 105. Bilirubin and alk phos were within normal limits. Prior to increasing the dose of Lipitor to 80 mg daily th e transaminases were normal at 18 and 28 respectively. The alk phos was also normal but the bilirubin was elevated at 1.7 which could be secondary to hemolysis or Gilbert's disease. Follow-up total bilirubins were within normal limits. Prior to discharge transaminases were rechecked and the AST was 35 with an ALT of 96. Patient denied any myalgia. A total CK was normal at 51. Because the etiology of the CVA is unknown a hypercoagulable panel was ordered while in rehab and the results are still pending at the time of DC. He did have COVID this past summer and he could possibly have an acquired coagulopathy. A 30 day event was ordered at [facility] from rehab and he will follow up with Dr. Conrad for the results after the monitor has been removed and interpreted. At presentation to rehab it was obvious his biggest disability was expressive and receptive aphasia. 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 He had no sensory deficits. He had 30 minutes of PT daily and 30 minutes of OT and [address] daily. Prior to DC he was ambulating independently with no assistive device and had no LOB. He was independent with all ADL's. He was discharged on 08/12/[address] at [facility] as an OP. His is going to bring in [employer] paperwork and I will complete and I will also call him when I get the results of the hypercoagulable panel. Physical Exam Const alert and no apparent distress General Appearance: cooperative and well developed HEENT normocephalic and head/scalp atraumatic Eyes PERRL and EOMs intact bilaterally Eyes Narrative: visual clark are intact Neck supple, no JVD, No nodes and no carotid bruits General: trachea midline Resp normal respiratory effort, normal air movement and clear to auscultation bilaterally Resp Narrative: He is able to speak in complete sentences. Effort and Inspection: Negative for tachypneic, respiratory distress, labored or uses accessory muscles Cardio regular rate, regular rhythm, S1 normal heart sound, S2 normal heart sound, no murmurs, no rub and no gallops Cardio Narrative: Heart sounds are a bit distant. GI normal to inspection, nondistended, normoactive bowel sounds, soft to palpation and non-tender GI Narrative: No guarding with palpation Extremity normal capillary refill, no clubbing, cyanosis or edema and no calf tenderness General Extremity: Negative for cyanosis or edema Skin no wounds, no jaundice and no petechiae General Skin Exam: no breakdown Rashes: no rashes Neuro oriented x3, CN's II-XII intact bilaterally, moves all extremities, no focal motor deficits and no sensory deficits noted Neuro Narrative: Facial droop has resolved. Dysarthria is much improved. Response time to questions has decreased and speech is more fluid. Good strength in all extr emities. Coordination / Balance: [id number]-ih-mipb test normal and fgwn-mp-jarg test normal Motor Exam: strength 5/5 throughout Psych cooperative, affect normal, denies homicidal ideation and denies suicidal ideation Appearance: appropriate Weight / BMI Weight Weight: 179 lb 0.246 oz ABG / Lab / Microbiology Data Result Diagrams: 08/05/22 06:30 08/09/22 15:00 Indicators for Scoring Admitted with or Primary Diagnosis of CVA/Stroke: Yes Hx of CVA/Stroke: No Modified Shira Score MRS Score at time of Evaluation: 2-Slight disability NIHSS NIHSS 1a. Level of Consciousness: Alert; keenly responsive 1b. LOC Questions: Answers BOTH questions correctly. 1c. LOC Commands: Performs both tasks correctly. 2. Best Gaze: Normal 3. Visual: No visual loss 4. Facial Palsy: Normal symmetrical movements 5a. Left Arm: No drift; arm holds 90 (or 45) degrees for full 10 seconds 5b. Right Arm: No drift; arm holds 90 (or 45) degrees for full 10 seconds 6a. Left Leg: No drift; leg holds 30-degree position for full 5 seconds 6b. Right Leg: No drift; leg holds 30-degree position for full 5 seconds 7. Limb Ataxia: Absent 8. Sensory: Normal; no sensory loss 9. Best Language: Iioi-lz-tdegpzbq aphasia; 10. Dysarthria: Hada-ms-mvpbisji dysarthria; 11. Extinction and Inattention: No abnormality Total: 2 D/C Instructions Discharge Diet: - (Low salt and low fat, heart healthy diet. ) Weight Bearing Status: Full weight bearing Call your doctor if you observe: Fever of 101 or Higher, Inability to urinate, Inability to have a bowel movement, Shortness of breath, Dizziness, Fainting spells, Swelling in the ankles, Chest pain, Increased palpitations (irregular heartbeat), Calf discomfort and Uncontrolled pain Pending Tests Upon Discharge: Hypercoagulable panel. Please Follow Up With: Babak Cosme MD When: 08/26/22 at 08:10 AM Meaningful Use Info Meaningful Use Diagnoses (Choose all that apply): Ischemic CVA CVA Therapy Assessed for PT,OT and/or ST?: Yes Ischemic Stroke Antithrombotic order at d/c?: Yes Dx of Atrial fib/flutter?: No Anticoagulant at discharge?: No Reason anticoagulant not ordered: Treatment not Indicated Statins at discharge?: Yes Primary Dx Acute Ischemic CVA?: Yes IV tPA ordered during stay?: No Reason IV t-PA not ordered: Medical Contraindication (was outside the window of [facility] when he presented to the ED. ) Discharge Plan Admission Admit Date/Time: 08/04/22 10:25 Primary Reason for Your Visit: post stroke debility Attending Provider: Marquita Escoto Primary Care Provider: Babak Cosme Instructions Patient Instructions: Intimacy After Stroke, Effects of a Stroke on the ..., Aphasia: Improving Communication, Depression Affects Your Mind ..., Depression: Tips to Help Yourself, Discharge Instructions for Stroke, AFib Additional Instructions / Restrictions: 1. Fortunately the stroke did not significantly impair motor function on the R side of your body. You had a little weakness in the R hand but, that was about it. You are able to walk without and assistive device and about to do all your activities of daily living without assistance. The sad part is the stroke impaired your ability to get your words out, your memory and the speed of your thought processes. You have improved already but, you will need continued speech therapy after discharge. You are going to have this at [facility] with Marga. 2. Depression is not uncommon after a stroke. Progress is often slow with therapy and it can be very frustrating. I am giving you a paper to read about the signs and symptoms of depression. If you think you may be depressed please schedule an appt with Dr. Cosme. You may need psychotherapy and/or medication. There is help with this. 3. You will be receiving a 30 day event monitor in the mail as well as directions for how to apply the monitor. You will wear the monitor for 30 days to continuously record the hearts rhythm. After the 30 days are up your will follow up with cardiology (Dr. Kush Conrad) to reveal the results of the study and discuss need for treatment. 4. You can not drive yet due to the slowing of your thought processes and the increased risk to get involved in motor vehicle accidents. The neurologist (Dr. Vitaliy Gonzalez) will be able to tell you when you can drive again. There is a program in [place] for people who have had [place] to make sure they are safe to drive prior to resuming driving. The social worker masters has given you information about the program. I recommend you attend this program to make sure it is safe for you to drive prior to driving in the community. 5. Goals for patients with strokes a. BP < 130/80 b. LDL < 70 c. HGBA1C < 7% d. No smoking e. Take all ordered medication f. Lose weight BMI < 25 6. Stroke symptoms: 1. Sudden numbness or weakness of the face, arm or leg especially if on one side of the body only 2. Sudden confusion, trouble speaking or understanding speech 3. Sudden trouble seeing in 1 eye or both eyes 4. Sudden trouble walking, dizziness, loss of balance or incoordination 5. Sudden severe headache with no known cause 7. Improvement with speech and cognitive function is slow after a stroke, more so than walking and dressing yourself. Try and be patient. You are making good improvement, keep at it. If you or Mary have any questions after you leave rehab pleases do not hesitate to call me. OFFICE: [phone] CELL: [phone] Discharge Orders/Prescriptions Prescriptions: New Artificial Tears([id number]) 1-0.2-0.2 % Drops 1 drp EACH EYE Q1H PRN (Reason: DRY EYES) Qty: 1 0RF Rx Instructions: 1 drop in affected eye every hour as needed for dry eyes Continued fluticasone propionate 50 mcg/actuation spray,suspension 1 spray intranasal DAILY Rx Instructions: administer into each nostril aspirin 81 mg tablet,chewable 81 mg PO BREAKFAST atorvastatin 80 mg tablet 80 mg PO QHS Qty: 30 0RF Discontinued oxymetazoline [Afrin (oxymetazoline)] 0.05 % spray,non-aerosol 1 spray intranasal ONCE Referrals / Follow Up: Dr Vitaliy Gonzalez [Other] - 08/18/22 12:30 pm (Neurology) Kush Conrad MD [Med Staff - Active Staff] - 10/13/22 11:00 am Babak Cosme MD [Primary Care Provider] - 08/26/22 8:10 am Disposition Disposition (needs filled in before D/C Order can be placed): Home, Self Care Charges/Coding Visit Charges Inpatient E&M: 53362 Disch Hosp
--- NOTE | 2022-08-12 18:01 | NURSING ---
discharged home with family. discharge instructions, mediations and appointments reviewed with pt and . denies questions and concerns
[2022-08-12 18:04] VITALS: BP 111/63; PULSE 70; RESP 16; TEMP 36.3; O2SAT 96
[2022-08-13 18:28] LABS: Beta-2-Glycoprotein I IgA <9 (0-25); Beta-2-Glycoprotein I IgG <9 (0-20); Beta-2-Glycoprotein I IgM 33 (0-32)
[2022-08-18 14:09] LABS: Protein C Antigen 133 % (60-150); Protein C, Functional 108 % (73-180)
[2022-08-20 13:19] LABS: Anti-Cardiolipin Ab, IgG, Qn < 9 GPL U/mL (0-14); Anti-Cardiolipin Ab, IgM, Qn 30 MPL U/mL (0-12); Anti-Thrombin 3 AG, Immunol 85 % (72-124); Antithrombin 3 Function 104 % (75-135)
== END 2022-08-12 18:05 | disposition home or self-care (01) | DRG 57 ==
PROVIDERS: Admitting Provider Internal Medicine; PCP Family Medicine; Referring Provider Internal Medicine; Visit Provider Internal Medicine
DX: I69.351 Hemiplegia and hemiparesis following cerebral infarction affecting right dominant side (principal); E78.5 Hyperlipidemia, unspecified; J30.9 Allergic rhinitis, unspecified; I69.920 Aphasia following unspecified cerebrovascular disease; Z86.16 Personal history of COVID-19; Z79.82 Long term (current) use of aspirin; Z79.899 Other long term (current) drug therapy; Z79.51 Long term (current) use of inhaled steroids
CPT/HCPCS: 36415; 80053; 81240; 81241; 82550; 83735; 84100; 85027; 85300; 85301; 85302; 85303; 85652; 86140; 86146; 86147; 92507; 92523; 94762; 97110; 97112; 97116; 97129; 97130; 97162; 97166; 97530; 97535; 97802; 97803; 99251; G0463

== ENCOUNTER → 2022-08-26 | Outpatient (CLI) | payer BC, SELFPAY ==
[2022-08-26 09:09] LABS: Bacteria 0 SEEN /hpf (None Seen); Mucous, Urine 0 SEEN /hpf (<or=2+); Squamous Epithelial Cells - UA 0 SEEN /hpf (0-5); White Blood Cells 0 SEEN /hpf (0-5)
[2022-08-26 10:02] LABS: Color, Urine Yellow (Yellow); Glucose, Dipstick Normal (Normal); Ketone-Dipstick Negative (Negative); Leukocyte Esterase-Dipstick 500 /ul (Negative); Nitrite-Dipstick Positive (Negative); Occult Blood-Urine 250 /ul (Negative); Protein-Dipstick 30 mg/dl (Negative); Urine Bilirubin Dipstick Negative (Negative); Urine Clarity Clear (Clear); Urine Urobilinogen Normal (Normal)
[2022-08-26 10:04] LABS: Absolute Lymphocyte Count 1.46 X10^3/uL (0.83-4.51); Absolute Neutrophil Count 2.8 X10^3/uL (2.0-7.7); Basophil# 0.02 X10^3/uL; Basophil% 0.4 % (0-1); Eosinophil# 0.15 X10^3/uL; Eosinophils% 3.1 % (0-5); Hematocrit 43.7 % (40-54); Hemoglobin 15.2 g/dL (13.0-16.5); Lymphocyte # 1.46 X10^3/ul (0.83-4.51); Lymphocyte % 30.4 % (19-41); Mean Corp Hgb Conc 34.8 g/dL (32-36); Mean Corpuscular Hgb 31.5 pg (27.0-32.0); Mean Corpuscular Volume 90.7 fL (80-94); Mean Platelet Vol. 9.8 fl (6.2-12.0); Monocyte# 0.36 X10^3/uL; Monocyte% 7.5 % (0-10); NRBC Flagged by Analyzer 0 % (0-5); Neutrophil # 2.81 X10^3/uL (2.7-7.7); Neutrophil % 58.4 % (47-70); Platelet Count 199 K/mm3 (150-450); RBC Distribution Width CV 12.4 % (11.6-14.6); RBC Distribution Width SD 40.7 fl (35.1-43.9); Red Blood Count 4.82 M/mm3 (4.6-6.2); White Blood Count 4.8 K/mm3 (4.4-11.0)
[2022-08-26 10:16] LABS: Red Blood Cells-Urine 0-5 SEEN /hpf (0-5)
[2022-08-26 11:13] LABS: ALB/GLOB Ratio 1.2 RATIO (0.9-2.4); AST(SGOT) 19 U/L (15-37); Alanine Aminotransfer ALT/SGPT 34 U/L (16-61); Albumin, Serum 3.5 g/dL (3.2-5.0); Alkaline Phosphatase 59 U/L (45-117); Anion Gap 5 (5-15); BUN 16 mg/dL (7-18); BUN/Creat Ratio 18.5 RATIO (10-20); Calcium,Total 8.9 mg/dL (8.5-10.1); Chloride 104 mmol/L (98-107); Creatinine, Serum 0.86 mg/dL (0.70-1.30); EST Glomerular Filtration Rate 96 mL/min (>60); Est Glom Filt Rate - Afr Amer 116 mL/min (>60); Glucose 87 mg/dL (74-106); Potassium 4.1 mmol/L (3.5-5.1); Protein, Total 6.5 g/dL (6.4-8.2); Sodium Level 139 mmol/L (136-145)
[2022-08-26 11:35] LABS: Microalbumin:Creatinine Ratio 7.7 mg/g CRE (<30 mg/g CRE)
== END | disposition home or self-care (01) ==
LOC: MFPLAB 09:05
PROVIDERS: PCP Family Medicine; Referring Provider Family Medicine; Visit Provider Family Medicine
DX: R31.9 Hematuria, unspecified (principal)
CPT/HCPCS: 36415; 80053; 81001; 82043; 82570; 85025

== ENCOUNTER → 2022-09-02 | Outpatient (CLI) | payer BC, SELFPAY ==
[2022-09-02 10:19] LABS: Color, Urine Yellow (Yellow); Glucose, Dipstick Normal (Normal); Ketone-Dipstick Negative (Negative); Leukocyte Esterase-Dipstick Negative /ul (Negative); Nitrite-Dipstick Negative (Negative); Occult Blood-Urine 150 /ul (Negative); Protein-Dipstick 15 mg/dl (Negative); Urine Bilirubin Dipstick Negative (Negative); Urine Clarity Clear (Clear); Urine Urobilinogen Normal (Normal)
[2022-09-02 11:13] LABS: Microalbumin,Random Urine 36.4 mg/L (NO RANGE EST.)
[2022-09-02 15:03] LABS: Bacteria 0 SEEN /hpf (None Seen); Squamous Epithelial Cells - UA 0 SEEN /hpf (0-5); White Blood Cells 0 SEEN /hpf (0-5)
[2022-09-02 15:13] LABS: Mucous, Urine 1+ /hpf (<or=2+); Red Blood Cells-Urine 10-25 SEEN /hpf (0-5)
== END | disposition home or self-care (01) ==
LOC: MFPLAB 09:12
PROVIDERS: PCP Family Medicine; Referring Provider Family Medicine; Visit Provider Family Medicine
DX: R31.9 Hematuria, unspecified (principal)
CPT/HCPCS: 81002; 82043; 87086

== ENCOUNTER 2023-01-03 10:00 | Outpatient (RCR) | payer BC, OTHER, SELFPAY ==
--- NOTE | 2022-08-16 17:53 | HP.SP.EVAL ---
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 The patient is able to execute 3 step commands presented verbally w/ 90% accuracy. Confrontation naming +90% accuracy. Automatic speech tasks w/ 100% accuracy. The patient demonstrates continued deficits in verbal expression - confrontation and descriptive naming are at/near 90% for nouns, but demonstrates increased difficulty w/ sentence length expression. Patient demonstrates deficits in reading and auditory comprehension, especially as length/complexity of information increases. Patient often requires multiple repetitions of information to aid in comprehension. Other Relevant Medical History/Diagnoses/Surgery: CHESTER ROTHMAN is a 61 year old male presenting the [facility] for continuation of services following d/c from inpatient rehab at [facility] s/p CVA to left middle cerebral artery. Pt holds a Ph.D. 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 Chester has progressed significantly compared to initial acute care speech therapy evaluation. He endorses difficulty with language and cognition. Pt enjoys exercising, playing guitar, reading, watching movies, and cooking. Smoking Status: Never smoker Hx Smoking: No Hx Tobacco Use: No - Pain Is pain an issue with your current prescribed condition?: No Patient Allergies - Allergies Allergies No Known Allergies Allergy (Verified 11/26/21 09:09) BDAE-3 - Zimmerman Diagnostic Aphasia Examination BDAE-3 Administered: Yes BDAE-3: The BDAE-3 assesses communication in the areas of: conversational and expository speech, auditory comprehension, oral expression, reading and writing. Date: 08/13/22 - Severity Level: 4 Level Detail: Some obvious loss of fluency in speech or facility of comprehension, without significant limitation of ideas expressed or form of expression. - Rating Scale Profile of speech character Articulation Agility: 6 Detail: Facility at phoneme and syllable level ranges from 1 being unable to form speech sounds to 7 being never impaired Phrase length: 7+ Detail: Longest occasional uninterrupted word runs Grammatical form: 6 Detail: Variety of grammatical constructions; use of grammatical mophemes: 1=nosyntactic word groupings ranging to 7 being normal range of syntax; normal facility with grammatical words Melodic Line (Prosody): 7 Detail: 1=word b word or aprosodic speech ranging to 7 being normal speech lina Paraphasia in running speech: 6 Detail: 1 present in evrey utterance ranging to 7 s absent Word finding relative to fluency: 6 Detail: 1 is fluent but empty speech ranging to 7 as output primarily content words - Summary Profile Conversation/Speech Conversational/Expository Speech Percentile: See subtest below Simple social responses Percentile: 100 - Summary Profile Auditory Comprehension Auditory Comprehension Percentile: See subtests below Basic word discrimination Percentile: 100 Commands Percentile: 100 Complex Ideational Material Percentile: 100 - Summary Profile Recitation Recitation automatized sequences Percentile: 100 - Summary Profile Repitition Repetition Percentile: See subtests below Words Percentile: 100 Sentences Percentile: 60 - Summary Profile Naming Naming Percentile: See subtests below. Responsive Naming Percentile: 40 Zimmerman Naming Test Percentile: 80 Special Categories Percentile: 100 - Summary Profile Reading Matching cases and scripts: 100 Number matchin Picture - word matchin Oral word readin Oral sentence readin Oral sentence comprehension: 100 Sentences/Paragraph comprehension: 100 - Summary Profile Writing Form: 100 Letter choice: 100 Motor faclility: 100 Primer words: 100 Regular phonics: 100 Common irregular words: 100 Written picture namin Narrative writin Plan - Plan Plan: Will recommend Pt for weekly outpatient speech therapy intervention address mild expressive and receptive aphasia. 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 He would benefit from circumlocution training and immediate feedback to identify instances of paraphasias. Without skilled intervention Pt is at risk for difficulty returning to work at a level deemed appropriate for college-level instruction communicating basic, medical, emergent, social wants & needs, and interacting with family/friends at home, during social interactions, and at work. - Recommendations Treatment Warranted: Yes Treatment Warranted: Receptive/ Expressive Language - Progress Prognosis: Excellent - Frequency Frequency: 1-2x /Week Duration: 4 Months - Goals that are Established Determination:: Goals will be added/modified as deemed necessary and appropriate. Therapy will be discontinued when results of re-evaluation indicate therapy is no longer needed or lack of progress has been documented. - Goal #1-5 Goal #1: Chester will independently demonstrate use of word finding strategies to participate in complex conversation tasks in 3 out of 4 word finding occurrences across 3 measured opportunities. Goal #2: Chester will describe visual scenes using 4 or more detailed sentences that include scene specific nouns and verbs with 95% accuracy independently. Goal #3: Chester will use specific VERB+OBJECT response to object description tasks (e.g., what do we use a razor for?) with 95% accuracy independently. Goal #4: Pt will participate in cont'd cognitive testing. Education - Patient has Indicated that the Following Identified Educational Needs: None The Patient has indicated that they have no educational or learning abilities that may effect their care.: Yes - Patient Instruction Patient Education: Diagnosis, Treatment Plan, Goals Person Taught: Patient Teaching Method: Discussion, Demonstration Response to teaching: Return demonstration, Verbalize understanding, Reinforcement needed
== END 2023-01-03 19:00 | disposition home or self-care (01) ==
LOC: SP 10:00
PROVIDERS: PCP Family Medicine; Referring Provider Internal Medicine; Visit Provider Family Medicine
DX: I69.320 Aphasia following cerebral infarction (principal)
CPT/HCPCS: 92507; 96105

== ENCOUNTER 2023-05-19 07:59 | Outpatient (RCR) | payer OTHER, SELFPAY ==
--- NOTE | 2023-05-20 15:36 | HP.SP.DC_ITS ---
ST Discharge Summary Discharged: Discharge: TOMY ROTHMAN is a 62 year old male who was seen for initial expressive language evaluation at [facility] on 08/16/2022 s/p CVA and subsequent aphasia dx. Pt attended 22 additional consecutive sessions following initial evaluation to target high level word retrieval skills and cognitive endurance. Pt making significant progress in a short-period of time. Trialed real-life tasks such as 3-4 weeks worth of lecture related talks towards the end of therapy. 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 Following re-evaluation of Pt?s current level of cognitive function, self-report, and caregiver report, Pt deemed appropriate for d/c from speech therapy at this time. Pt self reporting that at times anxiousness causes difficulty with word finding or answering questions he wasn't previously prepared for. He commented that he doesn't feel like others are able to notice his word finding compensations but he still feels them. Family reports noticing intermittent small differences too. Pt reports feeling like he is getting better and better each month. 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 Pt reporting small positive changes happening each month. Reminded Pt that he may not return to 100% given the stroke but it sounds like he is around 90% to his baseline with only a small percentage left to gain. Pt reporting feeling he is comfortable with not returning for cont'd speech therapy given his level of progress, ST agrees. Pt discharged from speech therapy caseload on this date, 05/20/23. Thank you for allowing me to participate in the care of your Pt. Will reevaluate at Pt?s request following script from physician.
== END 2023-05-19 19:00 | disposition home or self-care (01) ==
LOC: SP 07:59
PROVIDERS: PCP Family Medicine; Referring Provider Internal Medicine; Visit Provider Family Medicine
DX: Z86.73 Personal history of transient ischemic attack (TIA), and cerebral infarction without residual deficits (principal)
CPT/HCPCS: 92507

== ENCOUNTER 2024-11-20 08:21 | Outpatient (CLI) | payer OTHER, SELFPAY ==
[2024-11-21 06:07] LABS: Rubeola IgG Ab < 13.5 AU/mL (Immune >16.4)
== END 2024-11-20 23:59 | disposition home or self-care (01) ==
PROVIDERS: PCP Family Medicine; Referring Provider Family Medicine; Visit Provider Family Medicine
DX: Z23 Encounter for immunization (principal)
CPT/HCPCS: 36415; 86765